=== PATIENT | male | born 1970 | race Caucasian/White ===

== ENCOUNTER 2023-09-26 13:11 | Inpatient (IN) | payer MEDICARE, OTHER, SELFPAY ==
[2023-09-26] VITALS (7 sets, daily range): BP systolic 85–124; BP diastolic 42–81; BMI 17.5
--- NOTE | 2023-09-26 08:49 | ED.GENMED ---
History of Present Illness
General
Chief Complaint: Breathing Problem
Source: patient, ambulance crew and custodial
Exam Limitations: other (History of Down syndrome)
Time Seen by Provider: 09/26/23 08:48
Nursing documentation reviewed up to this point in time: agreed with
History of Present Illness
History of Present Illness:
53-year-old male past medical history of Down syndrome seizure disorder pulmonary fibrosis thyroid disorder presenting to the emergency department today with concerns of shortness of breath starting yesterday. No associated chest pain fevers nausea
vomiting or upper respiratory symptoms. Pulse ox of 80% according to EMS when they arrived at the nursing facility. Apparently he had a low blood pressure as well earlier today in the nursing facility but blood pressures were normal for EMS.
Past History
Past History
ED Past Medical History: GERD, Seizures, Hypothyroidism, Other (Achalasia, C. difficile colitis, GERD, hypothyroidism, Down's syndrome ) and Other (Down's syndrome)
ED Past Surgical History: Brain (Cranial abscess surgery 2005)
Social History
Tobacco: Non-smoker
Alcohol: None
Personal: Single
Living: with family
Employment: Employed (Grocery store)
Family History
Family History: Negative CAD
Review of Systems
Review of Systems
Allergies reviewed?: Yes
All Other Systems: ROS reviewed and negative except as documented in HPI and ROS
Phy Exam
Physical Exam
Physical Exam:
GENERAL: Alert , in no apparent distress
EYE: pupils equal and reactive
NECK: Supple, no significant adenopathy.
ENT: o/p clr, mmm.
CARDIAC: Regular rate and rhythm .
LUNGS: Clear breath sounds bilaterally, no acute respiratory distress, no wheezes/rales/rhonchi
ABDOMEN: Soft, without focal tenderness, no r/g, no cvat
NEUROLOGICAL: Alert and oriented, no focal neuro deficits
SKIN: Warm and dry, skin intact.
MUSCULOSKELETAL: No edema, well perfused.
PSYCH: Normal and appropriate interaction.
Scores
Heart Failure Risk
Heart Failure Risk Score: Not Applicable
Course
Orders/Labs/Results
Orders:
Orders
09/26/23 08:49
Electrocardiogram (*1) Stat
Reason for Study: Other
Other Reason for Exam: pneumonia
EKG- Treatment ONCE
Chest [CR Chest - 2 Views ] Urgent
Comment:
Reason For Exam: sob
09/26/23 09:04
COVID-19 Antigen Urgent
Source: Nasal Swab
Complete Blood Count/With Diff Urgent
Comprehensive Metabolic Panel Urgent
D-Dimer Urgent
NT-proBNP Urgent
Troponin I Urgent
Influenza A+B Rapid Molecular Urgent
PORTER Source: Nasal Swab
Specimen Description:
09/26/23 09:08
Lactate Level [Lactic Acid] Urgent
09/26/23 09:58
CT Chest Pe Study Urgent
Comment:
Reason For Exam: sob. elevated dimer
09/26/23 12:09
Azithromycin 500 mg/250 ml [Zithromax Infusion] 500 mg in 250 ml IV NOW
CefTRIAXone [Rocephin] 2,000 mg IV NOW STA
Abnormal Lab Results
09/26/23
09:04
WBC 14.8 H 10^3/uL
(4.8-10.8)
MCHC 32.2 L g/dL
(33.0-37.0)
RDW 17.2 H %
(11.5-14.5)
MPV 10.5 H fL
(7.4-10.4)
Abs Immat Gran (auto) 0.1 H 10^3/uL
(0-0.05)
Absolute Neuts (auto) 12.2 H 10^3/uL
(1.4-6.5)
Absolute Monos (auto) 1.0 H 10^3/uL
(0.1-0.6)
Neutrophils % 82.4 H %
(42.2-75.2)
Lymphocytes % 8.7 L %
(20.5-51.1)
D-Dimer 1.09 H ug/mlFEU
(0.00-0.50)
Carbon Dioxide 31 H mmol/L
(22-30)
Total Protein 8.7 H g/dl
(6.3-8.2)
09/26/23 09:04
09/26/23 09:04
Vital Signs
Initial and Last Documented VS:
Initial Vital Signs
Temp Pulse Resp
97.7 F 79 18
09/26/23 08:48 09/26/23 08:48 09/26/23 08:48
Last Documented Vital Signs
Temp Pulse Resp BP Pulse Ox
97.7 F 49 13 88/51 96
09/26/23 08:48 09/26/23 12:00 09/26/23 12:00 09/26/23 10:00 09/26/23 12:00
MDM/Problems Addressed
MDM/Problems Addressed:
53-year-old male presenting to the emergency department today with concerns of shortness of breath starting yesterday. Denies chest pain fevers upper respiratory symptoms otherwise. Does have a history of pulmonary fibrosis. Here patient
requiring 2 L nasal cannula which is improving his pulse ox in the mid 90s. Was initially 80 on arrival. Blood pressure in the 80s systolic patient with normal mental status throughout stay. White blood cell count of 14.8. Otherwise troponin
negative EKG unchanged CT scan obtained due to elevated dimer level. This showed pulmonary fibrosis with possibility of superimposed pneumonia. Considering multiple additional concerns and subjective fever over the last few days plan to treat for
possible pneumonia and admit due to the increased oxygen need and low blood pressure for further monitoring overnight.
*Critical Care Note
Total Time (30-74mins, 75-104mins- exclusive of procedures): Not Applicable
ED Attending Note
-
Portions of this chart may have been created with voice recognition software.� Occasional wrong word or��sound alike� substitutions may have occurred due to the inherent limitations of voice recognition software.
Discharge Plan
Departure
Patient Disposition: Admit
Date of Disposition: 09/26/23
Time of Disposition: 12:14
Admit to: Med/Surg
Admit to doctor: Alok
Presentation/result/management discussed w/ accepting MD/DO: Hospitalist
Patient with high blood pressure during this ER visit?: No
Condition: Good
Covid-19: Not Applicable
Discharge Problem:
Pneumonia, Hypoxemia
Prescriptions:
No Action
levothyroxine 75 MCG tablet
75 mcg PO DAILY@629
levetiracetam 250 MG tablet
250 mg PO BID@
sennosides [senna] 8.6 mg Tablet
8.6 mg PO DAILY@2029
acetaminophen [Tylenol] 325 mg Tablet
650 mg PO Q4H MDD 3,000 mg PRN (Reason: mild pain/fever>100.4)
famotidine 10 mg Tablet
10 mg PO Q12H@
magnesium hydroxide [Milk of Magnesia] 400 mg/5 mL Suspension
30 ml PO HSPRN PRN (Reason: constipation)
bisacodyl 10 mg Suppository
10 mg CA DAILY PRN (Reason: q 3 days when no BM and MOM/lactulose ineffective)
albuterol sulfate 90 mcg/actuation Hfa Aerosol Inhaler
1 puff INHALATION R Q4HPRN PRN (Reason: dyspnea)
Referrals:
UNKNOWN,NO INTERVIEW [Family Provider] -
Interventions
Interventions:
*Risk Screen - Suicide Last Done: 09/26/23 08:48
*General Assessment Last Done: 09/26/23 08:48
*Neglect/Abuse Screening Last Done: 09/26/23 08:48
ED- Fall Risk Assessment Last Done: 09/26/23 09:25
*ED COVID-19 Vaccine History Last Done: 09/26/23 08:48
ED- Cardiac Assessment Last Done: 09/26/23 09:23
ED- Pulmonary Assessment Last Done: 09/26/23 09:23
[2023-09-26 09:20] LABS: % Basophils 0.6 % (0-2); % Eosinophils 1.1 % (0-6); % Immature Granulocytes 0.5 % (0-0.5); % Lymphocytes 8.7 % (20.5-51.1); % Monocytes 6.7 % (1.7-9.3); % Neutrophils 82.4 % (42.2-75.2); Absolute Basophils 0.1 10^3/uL (0-0.2); Absolute Eosinophils 0.2 10^3/uL (0-0.7); Absolute Immature Granulocytes 0.1 10^3/uL (0-0.05); Absolute Lymphocytes 1.3 10^3/uL (1.2-3.4); Absolute Neutrophils 12.2 10^3/uL (1.4-6.5); Hematocrit 42.9 % (39.0-52.0); Hemoglobin 13.8 g/dL (13.0-18.0); Mean Corp Hgb Conc. 32.2 g/dL (33.0-37.0); Mean Corpuscular Hgb 28.8 pg (27.0-31.0); Mean Corpuscular Volume 89.6 fL (80.0-94.0); Mean Platelet Volume 10.5 fL (7.4-10.4); Nucleated Red Blood Cells % 0 % (-); Platelet Count 290 10^3/uL (130-400); Red Blood Cell Count 4.79 10^6/uL (4.70-6.10); Red Cell Dist. Width 17.2 % (11.5-14.5); White Blood Cell Count 14.8 10^3/uL (4.8-10.8)
[2023-09-26 09:34] LABS: D-Dimer 1.09 ug/mlFEU (0.00-0.50)
[2023-09-26 09:35] LABS: Lactic Acid 1.5 mmol/L (0.7-2.0)
[2023-09-26 09:40] LABS: ALT (SGPT) 21 U/L (0-50); AST (SGOT) 34 U/L (17-59); Albumin 3.8 g/dl (3.5-5.0); Alkaline Phosphatase 113 U/L (38-126); Blood Urea Nitrogen 11 mg/dl (9-20); Calcium 9.1 mg/dl (8.4-10.2); Carbon Dioxide 31 mmol/L (22-30); Chloride 100 mmol/L (98-107); Glucose 91 mg/dl (70-99); Potassium 4.3 mmol/L (3.5-5.1); Sodium 137 mmol/L (135-145); Total Bilirubin 1.1 mg/dl (0.2-1.3); Total Protein 8.7 g/dl (6.3-8.2); eGFR > 60.00
[2023-09-26 09:49] LABS: Troponin I < 0.012 ng/ml
[2023-09-26 09:56] LABS: COVID-19 Antigen Negative (Negative)
[2023-09-26 10:14] LABS: NT-proBNP 54.9 pg/ml
[2023-09-26] MEDS: ROCEPHIN 2000 MG IV (12:38)
[2023-09-26] MEDS: ZITHROMAX INFUSION 250 IV (12:38)
[2023-09-26] MEDS: NSS 1000 IV ×3 (12:43→23:38)
--- NOTE | 2023-09-26 12:50 | HPS.HSE ---
Addendum entered and electronically signed by Alok Romero MD 09/26/23 18:01:
I independently saw and examined the patient on September 26, 2023.
The PAJanet's note was reviewed and I agree with the note.
Comment:
53 y/o male past medical history of pulmonary fibrosis, seizure disorder, hypothyroidism, GERD, Down syndrome, Dementia, Achalasia and Esophageal Strictures, history of recurrent aspiration pneumonias with resultant pulmonary scarring, C. Diff
colitis, COVID pneumonia, history of prolonged QTc and cranial abscess (status post drainage in 2005) who presented with concerns of shortness of breath starting yesterday, as well as hypoxia (pulse ox was 80% on room air at patient's facility).
Patient resides at [facility]. Today staff noted patient to appear short of breath with cough, and a pulse of 80% on room air prompting him to be sent to the emergency department for evaluation. Patient was also found to be hypotensive below
baseline blood pressure levels, as per patient's family present in the emergency room at the time of admission. Patient is noted to be afebrile upon arrival. Patient is a limited historian.
Vital Signs
Afebrile
Pulse 40s to 70s
SBP as low as in the 70s - later improved
Oxygen saturation in the upper 90s on 2 liters NC
Physical Exam
General: Comfortable and Conversant
HEENT: Anicteric, Oxygen (Nasal Cannula) and Other (Dry Mucous Membranes)
Respiratory: Rales (Diffuse, more prominent in lower regions) and Non Labored Respirations
Cardiac: S1/S2 and Regular Rhythm
GI: Soft and Non Distended
Musculoskeletal: No Cyanosis and No Edema
Skin: Warm and Dry
Neuro: Awake, Alert and Nonfocal/grossly intact
Psych: Calm
Assessment/Plan
Acute Hypoxic Respiratory Insufficiency secondary to Pneumonia
-Continue supplement
-Attempt to wean prior to discharge
Community Acquired Pneumonia
-Continue Rocephin and Doxycycline
-Sputum culture
-Check blood cultures
History of recurrent aspiration pneumonias with resultant pulmonary scarring
Pulmonary Fibrosis
-Will consider pulmonary consult
Prolonged QTc
History of Prolonged QTc
-Avoid QT prolonging medications
Seizure Disorder
-Continue levetiracetam
Hypothyroidism
-Continue levothyroxine
GERD
Achalasia and Esophageal Strictures
-Continue Pepcid
Down syndrome
Dementia
History of C. Diff colitis
History of COVID pneumonia
History of cranial abscess (status post drainage in 2005)
DVT Prophylaxis: Lovenox
Code Status: DNR per [facility], this was confirmed with patient's brother at the bedside at the time of admission
Original Note:
Family Physician
-
Family Physician: NO INTERVIEW UNKNOWN
Chief Complaint
-
Hypoxia
History of Present Illness
Patient is a 53 y/o male past medical history of pulmonary fibrosis, seizure disorder, hypothyroidism and Down syndrome who presents with hypoxia. Patient resides at [facility]. Today staff noted patient to appear short of breath with cough,
and a pulse of 80% on room air prompting him to be sent to the emergency department for evaluation. Patient is noted to be afebrile upon arrival. Patient is a limited historian.
Medical History
Past Medical History
Past Medical History: Reports Other
Additional Past Medical History:
Down Syndrome
Seizure Disorder
Pulmonary Fibrosis
Hypothyroidism
GERD
Past Surgical History: Reports Other
Additional Past Surgical History:
Cranial Abscess Surgery - 2005
Social History
Tobacco: Non-smoker
Living: Half-Way
Family History
Family History: Not pertinent
Allergies / Home Medications
Allergies reflects when Allergies were last updated in [employer].
Home Medications with original date entered in [employer]
Allergy/Medication List:
Allergies
Allergy/AdvReac Type Severity Reaction Status Date / Time
No Known Allergies Allergy Unverified 07/08/20 17:50
Home Medications
levetiracetam 250 mg tablet 250 mg PO BID@ Seizures 07/08/20
levothyroxine 75 mcg tablet 75 mcg PO DAILY@629 Thyroid 07/08/20
acetaminophen 325 mg tablet (Tylenol) 650 mg PO Q4H PRN mild pain/fever>100.4 09/26/23
albuterol sulfate 90 mcg/actuation aerosol inhaler 1 puff inhalation R Q4HPRN PRN dyspnea 09/26/23
bisacodyl 10 mg rectal suppository 10 mg AK DAILY PRN q 3 days when no BM and MOM/lactulose ineffective 09/26/23
famotidine 10 mg tablet 10 mg PO Q12H@829,2029 Gastrointestinal Issue 09/26/23
magnesium hydroxide 400 mg/5 mL oral suspension (Milk of Magnesia) 30 ml PO HSPRN PRN constipation 09/26/23
sennosides 8.6 mg tablet (senna) 8.6 mg PO DAILY@2029 Constipation 09/26/23
Review of Systems
-
Unable to obtain full review of systems at this time due to: Acuity
Physical Exam
Vital Signs
Vital Signs
Temp Pulse Resp BP Pulse Ox
97.7 F 49 13 88/51 96
09/26/23 08:48 09/26/23 12:00 09/26/23 12:00 09/26/23 10:00 09/26/23 12:00
Physical Exam
General: Comfortable and Conversant
HEENT: Anicteric, Oxygen (Nasal Cannula) and Other (Dry Mucous Membranes)
Respiratory: Rales (Diffuse, more prominent in lower regions) and Non Labored Respirations
Cardiac: S1/S2 and Regular Rhythm
GI: Soft and Non Distended
Rectal: Deferred by Provider
Musculoskeletal: No Clubbing, No Cyanosis and No Edema
Skin: Warm and Dry
Neuro: Awake, Alert and Nonfocal/grossly intact
Psych: Calm
Laboratory Results
-
09/26/23 09:04
09/26/23 09:04
Laboratory Results
Lactic Acid 1.5 mmol/L (0.7-2.0) 09/26/23 09:08
Total Bilirubin 1.1 mg/dl (0.2-1.3) 09/26/23 09:04
AST 34 U/L (17-59) 09/26/23 09:04
ALT 21 U/L (0-50) 09/26/23 09:04
Alkaline Phosphatase 113 U/L (38-126) 09/26/23 09:04
Troponin I < 0.012 ng/ml 09/26/23 09:04
Data Reviewed
-
Diagnostic Radiology: Report Reviewed by me
Lab Data: Labs Reviewed by me
Impression/Plan
-
Acute Hypoxic Respiratory Insufficiency secondary to Pneumonia
-Continue supplement
-Attempt to wean prior to discharge
Community Acquired Pneumonia
-Continue Rocephin and Doxycycline
-Check blood cultures
Prolonged QT
-Avoid QT prolonging medications
Seizure Disorder
-Continue levetiracetam
Hypothyroidism
-Continue levothyroxine
GERD
-Continue Pepcid
DVT proph: Lovenox
Code Status: DNR per [facility], confirmed with patient's brother at the bedside at the time of admission
--- NOTE | 2023-09-26 17:00 | PTCARENOTE ---
Received pt from ER, Pt awake,alert and oriented x3. Pt some periods of forgetfulness, easily redirected. Pt has no c/o pain at this time. Pt VSS 94% on 2L. Pt said he has an occasional dry cough. Pt SB with prolonged QT on tele. Pt oriented to
room, call garcia within reach, bed alarm placed for safety, family at bedside, plan of care ongoing.
[2023-09-26] MEDS: LOVENOX 40 MG SC (18:09)
[2023-09-26 18:53] LABS: Troponin I < 0.012 ng/ml
[2023-09-26] MEDS: PEPCID 10 MG PO (20:30)
[2023-09-26] MEDS: SENOKOT PO (20:30)
[2023-09-26] MEDS: VIBRAMYCIN 100 MG PO (20:31)
[2023-09-26] MEDS: KEPPRA 250 MG PO (20:32)
[2023-09-27] VITALS (9 sets, daily range): BP systolic 78–128; BP diastolic 48–95; PULSE 58; O2SAT 97; BMI 17.5
--- NOTE | 2023-09-27 00:48 | PTCARENOTE ---
Patient refused his midnight troponin. Educated patient on the importance of lab draw, patient still continuing to refuse. HAZMAT CDL DRIVER made aware.
--- NOTE | 2023-09-27 01:30 | PTCARENOTE ---
Patient's blood pressure 85/42 with HR ranging from 30s-50s. Patient is asymptomatic, offers no complaints. SUCKER MACHINE OPERATOR made aware, 1L IV bolus ordered at 125 ml/hr. BP recheck 96/51. Plan of care ongoing.
[2023-09-27] MEDS: SYNTHROID 75 MCG PO (06:09)
[2023-09-27 08:34] LABS: Hematocrit 39.4 % (39.0-52.0); Hemoglobin 12.4 g/dL (13.0-18.0); Mean Corp Hgb Conc. 31.5 g/dL (33.0-37.0); Mean Corpuscular Hgb 28.8 pg (27.0-31.0); Mean Corpuscular Volume 91.4 fL (80.0-94.0); Mean Platelet Volume 10.8 fL (7.4-10.4); Platelet Count 254 10^3/uL (130-400); Red Blood Cell Count 4.31 10^6/uL (4.70-6.10); Red Cell Dist. Width 17.2 % (11.5-14.5)
[2023-09-27 08:49] LABS: Troponin I < 0.012 ng/ml
--- NOTE | 2023-09-27 08:59 | CON.ID ---
Consultation
-
Date/Time Consultation Requested: 09/27/2023, 0810
Date/Time Consultation Performed: 09/27/2023, 0900
Requesting Provider: Dr. Alok Romero
Performing Provider: Dr. Ania Corbin
Reason for Consultation: groundglass opacity
Chief Complaint / Past History
Chief Complaint
Cough
History of Present Illness
53 year old male with Down's syndrome, h/o achalasia/espophageal stricture/aspiration, ILD who presented to ED 09/26/23 due to 1 day history of cough. O2 sat 80% according to EMS. Chest CT shows worsening of pulmonary fibrosis. Pt denies fever or
chills. Cough nonproductive. + SOB. No BURNS, rhinorrhea, or sinus congestion. No ill-contacts. No travel hx. He denies aspiration events. He is on soft diet. He is feeling better today.
Past History
Additional Past Medical History:
Down's syndrome
Interstitial lung disease
GERD
Seizure disorder
Hypothyroidism
Achalasia
Esophageal strictures s/p dilation
hx Recurrent aspiration pneumonia.
prolonged QTC
Cranial abscess drainage 2005
Allergy History:
No Known Allergies Allergy (Unverified 07/08/20 17:50)
Medications Reviewed: Yes
Current Antibiotics:
Ceftriaxone (d2)
Doxycycline po (d2)
Social History
Tobacco: Non-Smoker
Alcohol: None
Drug: None
Living: With Family
Family History
Family History: Not Pertinent
Review of Systems
Review of Systems
General: Negative Fever, Chills or Change in Appetite
HEENT: Negative Sinus Problems, Headache or Pharyngitis
Respiratory: Dyspnea and Cough; Negative Sputum Production
Gasteroenterology: Other (no diarrhea); Negative Nausea or Vomiting
Genital / Urological: Negative Dysuria or Flank Pain
Endocrine: Negative Weakness
Neurological: Negative Dizziness
All systems: All other systems were reviewed and were negative
Vital Signs
Temp Pulse Resp BP Pulse Ox
97.7 F 51 16 93/59 91
09/27/23 07:05 09/27/23 07:05 09/27/23 07:05 09/27/23 07:05 09/27/23 07:05
Physical Exam
Physical Exam
Constitutional: No Acute Distress and Comfortable
Head: Other (No frontal or maxillary sinus tenderness)
Eyes: No Conjunctival Hemorrhage and Sclera Anicteric
Cardiovascular: Regular Rate and S1/S2
Pulmonary: Coarse (coarse cackles L)
Gastrointestinal: Soft, Non Tender, Non Distended and Normal Bowel Sounds
Genito-Urinary: Negative Simpson or CVA Tenderness
Extremities: Negative Edema
Neurological: Awake and Alert
Lab / Diagnostic Study Results
09/27/23 07:58
Abs Immat Gran (auto) 0.1 10^3/uL (0-0.05) H 09/26/23 09:04
Absolute Neuts (auto) 12.2 10^3/uL (1.4-6.5) H 09/26/23 09:04
Absolute Lymphs (auto) 1.3 10^3/uL (1.2-3.4) 09/26/23 09:04
Absolute Monos (auto) 1.0 10^3/uL (0.1-0.6) H 09/26/23 09:04
Absolute Basos (auto) 0.1 10^3/uL (0-0.2) 09/26/23 09:04
Immature Gran % 0.5 % (0-0.5) 09/26/23 09:04
Neutrophils % 82.4 % (42.2-75.2) H 09/26/23 09:04
Lymphocytes % 8.7 % (20.5-51.1) L 09/26/23 09:04
Monocytes % 6.7 % (1.7-9.3) 09/26/23 09:04
Eosinophils % 1.1 % (0-6) 09/26/23 09:04
Basophils % 0.6 % (0-2) 09/26/23 09:04
Lactic Acid 1.5 mmol/L (0.7-2.0) 09/26/23 09:08
Microbiology Results
Micro:
09/27/23 00:00 MRSA Screen - Pending
Nose
09/26/23 12:32 Blood Culture - Pending
Blood/Venous
09/26/23 12:32 Blood Culture - Pending
Blood/Venous
09/26/23 09:04 Influenza Types A & B (NEFTALY) - Final
Nasal Swab Negative for Influenza A & B, NAAT
Negative results must be combined with clinical observations
and patient history.
Nucleic Acid Amplification test (NAAT)performed on the
dotHIV platform.
09/26/2023 CXR: There is moderate diffuse coarsening of interstitial markings throughout both lungs more prominent on the right than the left and less extensive than that seen on the 07/08/2020 examination. Given the similar findings on the prior
study, this most likely is interstitial fibrosis, however, superimposed acute pneumonia is difficult to exclude and correlation with the patient's white count is recommended.
09/26/[address]: No PE. There is moderate linear interstitial and groundglass airspace disease throughout both lungs which has worsened in the interval since the previous examination and which is associated with bronchiectasis in the lower
portions of both lungs and emphysematous changes at the left lung base similar to the prior study and most consistent with worsening interstitial fibrosis. Superimposed interstitial pneumonia is difficult to exclude and correlation with the
patient's white count is recommended There is a stable 5 cm subcarinal mass which most likely is hiatal hernia which, if clinically indicated, could be further evaluated with upper GI.
Assessment / Plan
# CAP
- Agree with ceftriaxone and po doxycycline
# Acute hypoxic insufficiency
- wean O2 as tolerated
# Remote h/o of aspiration, on soft diet
- no recent aspiration
# ILD
# Down syndrome
[2023-09-27 09:39] LABS: Blood Urea Nitrogen 8 mg/dl (9-20); Calcium 8.3 mg/dl (8.4-10.2); Carbon Dioxide 28 mmol/L (22-30); Chloride 103 mmol/L (98-107); Estimated Creatinine Clearance 62 ml/min; Glucose 93 mg/dl (70-99); Potassium 4.1 mmol/L (3.5-5.1); Sodium 137 mmol/L (135-145); eGFR > 60.00
[2023-09-27] MEDS: VIBRAMYCIN 100 MG PO ×2 (09:41→20:53)
[2023-09-27] MEDS: PEPCID 10 MG PO ×2 (09:42→20:54)
[2023-09-27] MEDS: KEPPRA 250 MG PO ×2 (09:42→20:54)
[2023-09-27 09:50] LABS: Cortisol, Random 20.9 ug/dl
--- NOTE | 2023-09-27 09:52 | W.PN.HOSP.TC ---
Today's Communication/Plan
-
Continue antibiotics
Appreciate pulm and ID recommendations
Assessment / Plan
Assessment / Plan
Physical Exam
Physical Exam not performed as patient was not present in his room at the time of attempted patient encounter.

Echocardiogram as per disaster recovery specialist's report:
'CONCLUSIONS
Normal left ventricular size, wall thickness and systolic function. No
regional wall motion abnormalities are seen. Left ventricular ejection fraction
is 55-60% by visual estimate. Normal diastolic function.
Normal right ventricular size and function.
Mild aortic regurgitation.'

Assessment/Plan
Acute Hypoxic Respiratory Insufficiency secondary to Pneumonia
-Continue supplement
-Attempt to wean prior to discharge
Community Acquired Pneumonia
-Continue Rocephin and Doxycycline
-Sputum culture
-Follow blood cultures
-Consulted ID, recommendations appreciated
History of recurrent aspiration pneumonias with resultant pulmonary scarring
Pulmonary Fibrosis
-Pulmonary consulted, recommendations appreciated
Prolonged QTc
History of Prolonged QTc
-Avoid QT prolonging medications
Seizure Disorder
-Continue levetiracetam
Hypothyroidism
-Continue levothyroxine
GERD
Achalasia and Esophageal Strictures
-Continue Pepcid
Down syndrome
Dementia
History of C. Diff colitis
History of COVID pneumonia
History of cranial abscess (status post drainage in 2005)
DVT Prophylaxis: Lovenox
Diet: IDDSI Level 5 (minced and moist) and Moderately Thick Liquids
Code Status: DNR per [facility], this was confirmed with patient's brother at the bedside at the time of admission
Anticipated Discharge: > 48 hours
Subjective/Interval History
-
Date of Service: September 27, 2023
Patient was not present in his room at the time of attempted patient encounter. Chart reviewed.
Objective Data
-
Labs:
Laboratory Results
09/27/23
07:58
WBC 5.0
Hgb 12.4 L
Hct 39.4
Plt Count 254
Sodium 137
Potassium 4.1
Chloride 103
Carbon Dioxide 28
BUN 8 L
Creatinine 0.8
Glucose 93
Calcium 8.3 L
Vital Signs:
Vital Signs
Temp Pulse Resp BP Pulse Ox
97.7 F 51 16 93/59 91
09/27/23 07:05 09/27/23 07:05 09/27/23 07:05 09/27/23 07:05 09/27/23 07:05
--- NOTE | 2023-09-27 11:43 | PTOTSP ---
Speech Therapy Swallowing Assessment
Patient with mild symptoms that could indicated laryngeal penetration/aspiration of thin liquids. No gross coughing but mild changes in vocal quality after thin liquid intake.
Given history of silent aspiration during 2011 VSE and more recent recurrent pneumonias, VSE is warranted.
Recommend
1. Downgrade to IDDSI level 6/[place] thick liquids
2. Meds in applesauce cutting or crushing larger pills.
3. Aspiration precautions.
4. VSE for updated objective assessment of pharyngeal phase of swallow/risk for aspiration.
[2023-09-27 11:50] LABS: Free T4 0.92 ng/dl (0.78-2.19)
[2023-09-27] MEDS: ROCEPHIN 1000 MG IV (14:04)
[2023-09-27] MEDS: STERILE WATER FOR INJECTION 10 ML IV (14:05)
--- NOTE | 2023-09-27 14:29 | PTOTSP ---
Video Swallow Examination
Delayed swallow onset with what appeared to be incomplete epiglottic inversion. Together this resulted in Laryngeal penetration of thin liquid tsp 1/2 trials and aspiration on second trial of thin liquid by tsp. Deep laryngeal penetration to vocal
cords on 1/2 trials of thin liquid by cup. Upper laryngeal penetration on 1/2 trials of mildly thick liquid by cup. Tracheal aspiration on second trial of thin and mildly thick liquids by large volume cup sip that required two swallows to clear from
oral cavity. Cough was delayed and ineffective at clearing aspirated/penetrated material.
Collection of contrast within vallecula with solids, and moderately thick liquids.
Collection of contrast noted distally when observing in lateral upright posisition, suggesting contents slow to empty
Recommend:
1. Downgrade to moderately thick liquids. Continue IDDSI 5 Diet (minced/moist).
2. Meds crushed in applesauce.
3. Allow ice chips per [facility] guidelines including oral care via suction toothbrush.
4. Aspiration and reflux precautions.
5. Assist to feed as needed to ensure cyclic ingestion and appropriate amount and rate of intake.
ST will follow and is recommended at discharge.
[2023-09-27 15:06] LABS: Troponin I < 0.012 ng/ml
--- NOTE | 2023-09-27 16:40 | CON.PUL ---
Consultation
Consultation Request
Date/Time Consultation Requested: 09/27/2023
Date/Time Consultation Performed: 09/27/2023
Requesting Provider: NERISSA Cohen
Performing Provider: Dr. Bautista Zelaya
Reason for Consultation: Respiratory insufficiency, pneumonia.
Medical History
-
History of Present Illness:
53-year-old man with history of pulmonary fibrosis, seizure disorder, hypothyroidism, Down syndrome, GERD, achalasia, esophageal strictures, history of recurrent pneumonia with postinflammatory scarring, history of prolonged QT, prior cranial
abscess status post drainage in 2005 came with shortness of breath since yesterday. He was found to be hypoxic with a pulse ox down to 80% at his facility.
Patient resides in [facility]. Patient initially was found to be hypotensive, IV fluid resuscitation was given. Patient is a poor historian.
Records reviewed.
Patient is able to cough on demand but unable to provide more details.
Past Medical History
Past Medical History: Other (See assessment and plan section.)
Social History
Tobacco: Non-smoker
Alcohol: None
Drug: None
Living: [facility]
Family History
Family History: Unable to Obtain (Down syndrome)
Allergies / Home Medications
Allergies
Allergy/AdvReac Type Severity Reaction Status Date / Time
No Known Allergies Allergy Unverified 07/08/20 17:50
Home Medications
Medication Instructions Recorded Confirmed Last Taken Type
levetiracetam 250 mg tablet 250 mg PO BID@0830,2030 Seizures 07/08/20 09/26/23 07/08/20 History
levothyroxine 75 mcg tablet 75 mcg PO DAILY@0630 Thyroid 07/08/20 09/26/23 07/08/20 History
acetaminophen 325 mg tablet 650 mg PO Q4H PRN mild 09/26/23 09/26/23 Unknown History
(Tylenol) pain/fever>100.4
albuterol sulfate 90 mcg/actuation 1 puff inhalation R Q4HPRN PRN 09/26/23 09/26/23 Unknown History
aerosol inhaler dyspnea
bisacodyl 10 mg rectal suppository 10 mg DC DAILY PRN q 3 days when 09/26/23 09/26/23 Unknown History
no BM and MOM/lactulose ineffective
famotidine 10 mg tablet 10 mg PO Q12H@0830,202909/26/23 09/26/23 Unknown History
Gastrointestinal Issue
magnesium hydroxide 400 mg/5 mL 30 ml PO HSPRN PRN constipation 09/26/23 09/26/23 Unknown History
oral suspension (Milk of Magnesia)
sennosides 8.6 mg tablet (senna) 8.6 mg PO DAILY@2029 Constipation 09/26/23 09/26/23 Unknown History
Review of Systems
-
History Source: Patient
All other systems: Negative unless noted
Vitals / Labs / Diagnostic Testing
Vital Signs
Temp Pulse Resp BP Pulse Ox
98 F 56 18 78/48 92
09/27/23 15:05 09/27/23 15:05 09/27/23 15:05 09/27/23 15:05 09/27/23 15:05
Lab Data
09/27/23 07:58
09/27/23 07:58
Microbiology
09/26/23 12:32 Blood/Venous Blood Culture - Preliminary
No Growth in 24 hours- Final report to follow
09/26/23 12:32 Blood/Venous Blood Culture - Preliminary
No Growth in 24 hours- Final report to follow
09/26/23 09:04 Nasal Swab Influenza Types A & B (NEFTALY) - Final
Negative for Influenza A & B, NAAT
Negative results must be combined with clinical observations
and patient history.
Nucleic Acid Amplification test (NAAT)performed on the
[employer] platform.
Diagnostic Testing:
Physical Exam
-
HEENT: Normocephalic
Cardiovascular: S1/S2
Respiratory: Wheeze (n) and Rales
GI: Soft and Non Distended
Neurology: Awake and Alert
Skin: Warm
General: Respiratory Distress (n at rest.)
Assessment
-
Hypoxemic respiratory insufficiency likely bilateral severe pneumonia and top of interstitial lung disease.
CT chest: 09/26/2023-reviewed, no pulmonary embolism. There is moderate linear interstitial and groundglass airspace disease throughout both lungs worsened compared to prior. There is associated bronchiectasis in both lower lobes with
emphysematous changes. There is worsening interstitial fibrosis compared to prior. There is a stable 5 cm subcarinal mass which most likely is hiatal hernia.
Leukocytosis
Conditions present prior admission:
GERD
Achalasia
Chronic aspiration syndrome
Down syndrome
History of C. difficile colitis
History of COVID-pneumonia
History of cranial abscess in 2005
DNR status
Hypothyroidism
Seizure disorder
History of prolonged QT
Pulmonary fibrosis-postinflammatory. Seen by Dr. Brown 09/23/2023-[facility] records reviewed, at that time was discussed comfort diet/no aggressive interventions or evaluation.
-
Plan recommendations:
Agree with therapy with antibiotics, likely this is reflection of recurrent aspiration.
Coughing on demand with congestion. Unable to expectorate.
Crackles on both bases
Minimal shortness of breath with conversation.
Oxygen has been weaned off.
-
[facility] records determined that the pa, if able to produce. Tient is not following recommended diet, family wanted to focus mainly on comfort.
Follow cultures
Continue supplemental oxygen
Nebulizers as needed
In regards to underlying pulmonary fibrosis: Family declined further evaluation. This is likely secondary to chronic aspiration syndrome and prior pneumonia.
-
Aspiration precautions as able
Secretion clearance interventions as able if patient cooperates
-
DVT prophylaxis
DNR status noted.
Based on CAT scan with significant bilateral infiltrates, high risk intubation. Will continue to follow closely.
[2023-09-27] MEDS: LOVENOX 40 MG SC (17:33)
[2023-09-27] MEDS: NSS 1000 IV (17:34)
[2023-09-27] MEDS: SENOKOT 8.59999999999999964 MG PO (20:54)
[2023-09-28] VITALS (7 sets, daily range): BP systolic 87–103; BP diastolic 49–67
[2023-09-28] MEDS: NSS 1000 IV ×2 (03:47→14:26)
[2023-09-28] MEDS: SYNTHROID 75 MCG PO (05:48)
[2023-09-28] MEDS: VIBRAMYCIN 100 MG PO (09:25)
[2023-09-28] MEDS: PEPCID 10 MG PO ×2 (09:26→20:25)
[2023-09-28] MEDS: KEPPRA 250 MG PO ×2 (09:26→20:29)
--- NOTE | 2023-09-28 10:45 | CM ---
CM following re: d/c planning
Chart reviewed
CM spoke with Darnell Hinton via phone; IA questions completed
Pt has been a LTC patient at [facility] since on their dementia unit
NEGATIVE RETOUCHER patient is assisted with adls & mobility and disposition goal is to return to facility once medically stable
Pt PCP-Dr. Ilia Smith & medications are managed by [facility]
CM will continue to follow patient progress and assist with d/c planning needs as indicated
PLAN; d/c to [facility] when medically stable
--- NOTE | 2023-09-28 11:29 | PN.CDI ---
CDI
- -
CDI:
Physician Documentation Request
Admit Date: 09/26/23 13:11
Dear Doctor Heather,
Patient admitted with pneumonia.
Please review the following and provide your response in the progress notes.
Clinical Indicators:
Height: 5'1'
Weight: 92 lb 5 oz
BMI: 17.4
Please provide an associated diagnosis related to the abnormal BMI, such as:
Underweight
Cachectic
Anorexia
BMI is not significant
Other
BMI < or = to 19
Underweight
Weight Loss
Cachectic
Anorexia
Use of terms such as suspected, likely, concern for, or probable (associated with a specific diagnosis that is being evaluated, monitored, or treated as if it exists) are acceptable and can be coded in the inpatient setting, when documented at the
time of discharge.
Thank you,
Syeda ALEJANDRE,RN,CCDS
CDI Specialist
Available via tiger text
Please use your independent medical judgment in providing your response.
--- NOTE | 2023-09-28 11:38 | PN.CDI ---
CDI
- -
CDI:
Physician Documentation Request
Admit Date: 09/26/23 13:11
Dear Doctor Heather,
Patient admitted with pneumonia.
EMS report, ' Pt administered O2 at 6L/M via NC( no change in pt's condition)....Pt's O2 titration upgraded to NRB at 15L/M
(SpO2 level improved and pt stated he could breath better.)
Please provide in your note the diagnosis associate with patient's respiratory status on admission:
Acute hypoxic respiratory failure, POA, now resolved
Hypoxia only
Other
Use of terms such as suspected, likely, concern for, or probable (associated with a specific diagnosis that is being evaluated, monitored, or treated as if it exists) are acceptable and can be coded in the inpatient setting, when documented at the
time of discharge.
Thank you,
Syeda ALEJANDRE,RN,CCDS
CDI Specialist
Available via [place] text
Please use your independent medical judgment in providing your response.
[2023-09-28] MEDS: STERILE WATER FOR INJECTION 10 ML IV ×3 (12:03→22:26)
[2023-09-28] MEDS: ROCEPHIN 1000 MG IV (12:03)
--- NOTE | 2023-09-28 12:06 | W.PN.PUL3 ---
Today's Communication / Plan
-
cont. ABX
Follow cultures.
Secretion clearance
oxygen therapy as necessary.
Assessment
-
Hypoxemic respiratory insufficiency likely bilateral severe pneumonia and top of interstitial lung disease.
CT chest: 09/26/2023-reviewed, no pulmonary embolism. There is moderate linear interstitial and groundglass airspace disease throughout both lungs worsened compared to prior. There is associated bronchiectasis in both lower lobes with
emphysematous changes. There is worsening interstitial fibrosis compared to prior. There is a stable 5 cm subcarinal mass which most likely is hiatal hernia.
Leukocytosis
Conditions present prior admission:
GERD
Achalasia
Chronic aspiration syndrome
Down syndrome
History of C. difficile colitis
History of COVID-pneumonia
History of cranial abscess in 2005
DNR status
Hypothyroidism
Seizure disorder
History of prolonged QT
Pulmonary fibrosis-postinflammatory. Seen by Dr. Brown 09/23/2023-[facility] records reviewed, at that time was discussed comfort diet/no aggressive interventions or evaluation.
-
Plan recommendations:
-
Stable overnight, on low rate supplementa oxygen.
Swallow eval noted, diet modifies. Likely event was due to aspiration.
-
Coughing on demand with congestion. Unable to expectorate.
Crackles on both bases
Denies SOB.
Wean FiO2
Wait for cultures.
acapella if pt able.
-
[facility] records :patient is not following recommended diet, family wanted to focus mainly on comfort.
-
Nebulizers as needed for secretion clearance.
-
In regards to underlying pulmonary fibrosis: Family declined further evaluation. This is likely secondary to chronic aspiration syndrome and prior pneumonia.
-
DVT prophylaxis
DNR status noted.
-
Hopefully if stable and responding to ABX can DC in next 24hr if cultures remain negative
Subjective Data
-
Date of Service:
Date of Service: September 28, 2023
Objective Data
Data Reviewed
Vital Signs / I&O / Oxygen:
Vital Signs
Temp Pulse Resp BP Pulse Ox
98.1 F 53 18 95/50 98
09/28/23 07:00 09/28/23 07:00 09/28/23 07:00 09/28/23 07:00 09/28/23 09:30
Intake and Output
09/27/23 09/28/23 09/29/23
06:59 06:59 06:59
Intake Total 1080 / 1080
Output Total 600 / 600
Balance 480 / 480
SaO2 98
Nasal Cannula flow liters per 2
minute
Labs/Micro/Reports
Lab Data
09/27/23 07:58
09/27/23 07:58
Microbiology
09/27/23 00:00 Nose MRSA Screen - Final
Staph aureus MRSA
09/26/23 12:32 Blood/Venous Blood Culture - Preliminary
No Growth in 24 hours- Final report to follow
09/26/23 12:32 Blood/Venous Blood Culture - Preliminary
No Growth in 24 hours- Final report to follow
09/26/23 09:04 Nasal Swab Influenza Types A & B (NEFTALY) - Final
Negative for Influenza A & B, NAAT
Negative results must be combined with clinical observations
and patient history.
Nucleic Acid Amplification test (NAAT)performed on the
[employer] platform.
--- NOTE | 2023-09-28 13:02 | W.PN.ID1 ---
Date of Service
Date of Service: September 28, 2023
Today's Communication
Since pt is [facility] resident and colonized with MRSA, broaden abx's to po linezolid 600mg bid and IV cefepime.
Assessment / Plan
# Pneumonia
# Acute hypoxic insufficiency
# MRSA colonization
# SNF resident
# h/o of aspiration
# Pulm fibrosis
# Down syndrome
Plan:
- Swallow study aspiration of thin liquids and nectar.
- Since pt is [facility] resident, colonized with MRSA, broaden abx's to po linezolid 600mg bid and IV cefepime.
-Follow O2 status.
#Additional Past Medical History:
Down's syndrome
Interstitial lung disease
GERD
Seizure disorder
Hypothyroidism�
Achalasia
Esophageal strictures s/p dilation
hx Recurrent aspiration pneumonia.
prolonged QTC
Cranial abscess drainage 2005
Chief Complaint
-: Pneumonia
Subjective / Review of Systems
Brother at bedside. Pt reports cough and SOB improving.
Per brother he lives at [facility] ([place])
Vital Signs / Physical Exam
Vital Signs
Vital Signs
Temp Pulse Resp BP Pulse Ox
98.1 F 56 20 87/54 100
09/28/23 11:00 09/28/23 11:00 09/28/23 11:00 09/28/23 11:09/28/23 11:00
Physical Exam
Constitutional: No Acute Distress and Comfortable
Cardiovascular: Regular Rate and S1/S2
Pulmonary: Rales (bibasilar crackles)
Gastrointestinal: Soft, Non Tender and Non Distended
Genito-Urinary: Negative CVA Tenderness
Extremities: Negative Edema
Neurological: AO x 3
Objective Data
Lab Data
Lab Results
09/27/23 07:58
09/27/23 07:58
Estimated Creat Clear 62 ml/min 09/27/23 07:58
Lactic Acid 1.5 mmol/L (0.7-2.0) 09/26/23 09:08
Total Bilirubin 1.1 mg/dl (0.2-1.3) 09/26/23 09:04
AST 34 U/L (17-59) 09/26/23 09:04
ALT 21 U/L (0-50) 09/26/23 09:04
Alkaline Phosphatase 113 U/L (38-126) 09/26/23 09:04
Most recent labs reviewed.
Micro Results:
09/26/23 12:32 Blood Culture - Preliminary
Blood/Venous No Growth in 48 hours- Final report to follow
09/26/23 12:32 Blood Culture - Preliminary
Blood/Venous No Growth in 48 hours- Final report to follow
09/27/23 00:00 MRSA Screen - Final
Nose Staph aureus MRSA
09/26/23 09:04 Influenza Types A & B (NEFTALY) - Final
Nasal Swab Negative for Influenza A & B, NAAT
Negative results must be combined with clinical observations
and patient history.
Nucleic Acid Amplification test (NAAT)performed on the
[employer] platform.
09/26/2023 CXR: There is moderate diffuse coarsening of interstitial markings throughout both lungs more prominent on the right than the left and less extensive than that seen on the 07/08/2020 examination. Given the similar findings on the prior
study, this most likely is interstitial fibrosis, however, superimposed acute pneumonia is difficult to exclude and correlation with the patient's white count is recommended.
09/26/[address]: No PE. There is moderate linear interstitial and groundglass airspace disease throughout both lungs which has worsened in the interval since the previous examination and which is associated with bronchiectasis in the lower
portions of both lungs and emphysematous changes at the left lung base similar to the prior study and most consistent with worsening interstitial fibrosis. Superimposed interstitial pneumonia is difficult to exclude and correlation with the
patient's white count is recommended There is a stable 5 cm subcarinal mass which most likely is hiatal hernia which, if clinically indicated, could be further evaluated with upper GI.
[2023-09-28] MEDS: MAXIPIME 2000 MG IV ×2 (14:22→22:25)
--- NOTE | 2023-09-28 16:07 | W.PN.HOSP.TC ---
Today's Communication/Plan
-
Antibiotics broadened given MRSA
Will consider GI re-evaluation
Assessment / Plan
Assessment / Plan
Physical Exam
General: Comfortable and Conversant
HEENT: Anicteric, Oxygen (Nasal Cannula) and Other (Dry Mucous Membranes)
Respiratory: Rales (Diffuse, more prominent in lower regions) and Non Labored Respirations
Cardiac: S1/S2 and Regular Rhythm
GI: Soft and Non Distended
Musculoskeletal: No Cyanosis and No Edema
Skin: Warm and Dry
Neuro: Awake, Alert and Nonfocal/grossly intact
Psych: Calm

Echocardiogram as per assistant wrestling coach's report:
'CONCLUSIONS
Normal left ventricular size, wall thickness and systolic function. No
regional wall motion abnormalities are seen. Left ventricular ejection fraction
is 55-60% by visual estimate. Normal diastolic function.
Normal right ventricular size and function.
Mild aortic regurgitation.'

Assessment/Plan
Acute hypoxic respiratory failure, POA, now resolved - secondary to Pneumonia
-Continue supplement
-Attempt to wean prior to discharge
Community Acquired Pneumonia
MRSA Colonization
-Status post Rocephin and Doxycycline
-Continue Linezolid and Cefepime as per Infectious Disease
-Sputum culture
-Follow blood cultures
-Consulted ID, recommendations appreciated
History of recurrent aspiration pneumonias with resultant pulmonary scarring
Pulmonary Fibrosis
-Pulmonary consulted, recommendations appreciated
Hypotension
-Echocardiogram was unremarkable except for mild aortic regurgitation.
-Random AM cortisol was 20.9
-TSH was high at 27.60 and Free T4 was 0.92
Prolonged QTc
History of Prolonged QTc
-Avoid QT prolonging medications
Seizure Disorder
-Continue levetiracetam
Hypothyroidism
-Continue levothyroxine
GERD
Achalasia and Esophageal Strictures
-Continue Pepcid
-Considering GI consult for re-evaluation
Underweight
Down syndrome
Dementia
History of C. Diff colitis
History of COVID pneumonia
History of cranial abscess (status post drainage in 2005)
DVT Prophylaxis: Lovenox
Diet: IDDSI Level 5 (minced and moist) and Moderately Thick Liquids
Code Status: DNR per [facility], this was confirmed with patient's brother at the bedside at the time of admission
I discussed case with patient's family who was present in the room today.
Anticipated Discharge: > 48 hours
Subjective/Interval History
-
Date of Service: September 28, 2023
Objective Data
-
Vital Signs:
Vital Signs
Temp Pulse Resp BP Pulse Ox
98.1 F 58 18 97/52 100
09/28/23 15:00 09/28/23 15:00 09/28/23 15:00 09/28/23 15:00 09/28/23 15:00
I&O
09/27/23 09/28/23 09/29/23
06:59 06:59 06:59
Intake Total 1080 / 1080
Output Total 600 / 600
Balance 480 / 480
--- NOTE | 2023-09-28 16:07 | PTCARENOTE ---
Pt is transferring to 2123 due to MRSA +, called report to Jenifer GARCIA, going down on Stretcher with Fluids running. Pt is A+Ox2, in no distress.
--- NOTE | 2023-09-28 16:49 | PTCARENOTE ---
pt received from [facility] after given report. Pt tele monitor tubed to [facility]. 2n tele monitor applied. Vitals taken, nursing assessment complete. patient oriented to floor and room. Pt. comfortable in bed watching tv.
[2023-09-28] MEDS: LOVENOX 40 MG SC (17:51)
[2023-09-28] MEDS: SENOKOT 8.59999999999999964 MG PO (20:25)
[2023-09-28 20:27] LABS: % Eosinophils 1.7 % (0-6); % Immature Granulocytes 0.5 % (0-0.5); % Lymphocytes 17.2 % (20.5-51.1); % Monocytes 3.2 % (1.7-9.3); % Neutrophils 76.4 % (42.2-75.2); Absolute Basophils 0.1 10^3/uL (0-0.2); Absolute Eosinophils 0.1 10^3/uL (0-0.7); Absolute Lymphocytes 1.4 10^3/uL (1.2-3.4); Absolute Monocytes 0.3 10^3/uL (0.1-0.6); Absolute Neutrophils 6.2 10^3/uL (1.4-6.5); Hematocrit 36.1 % (39.0-52.0); Hemoglobin 11.4 g/dL (13.0-18.0); Mean Corp Hgb Conc. 31.6 g/dL (33.0-37.0); Mean Corpuscular Volume 91.9 fL (80.0-94.0); Mean Platelet Volume 9.8 fL (7.4-10.4); Nucleated Red Blood Cells % 0 % (-); Platelet Count 222 10^3/uL (130-400); Red Blood Cell Count 3.93 10^6/uL (4.70-6.10); Red Cell Dist. Width 17.5 % (11.5-14.5); White Blood Cell Count 8.1 10^3/uL (4.8-10.8)
[2023-09-28] MEDS: ZYVOX 600 MG PO (20:29)
[2023-09-28 20:47] LABS: ALT (SGPT) 13 U/L (0-50); AST (SGOT) 28 U/L (17-59); Albumin 2.6 g/dl (3.5-5.0); Alkaline Phosphatase 64 U/L (38-126); Blood Urea Nitrogen 10 mg/dl (9-20); Calcium 8.1 mg/dl (8.4-10.2); Carbon Dioxide 28 mmol/L (22-30); Chloride 107 mmol/L (98-107); Estimated Creatinine Clearance 71 ml/min; Glucose 114 mg/dl (70-99); Potassium 4.7 mmol/L (3.5-5.1); Sodium 141 mmol/L (135-145); Total Bilirubin 0.6 mg/dl (0.2-1.3); Total Protein 6.5 g/dl (6.3-8.2); eGFR > 60.00
[2023-09-29] VITALS (7 sets, daily range): BP systolic 90–111; BP diastolic 47–59
[2023-09-29] MEDS: MAXIPIME 2000 MG IV (05:19)
[2023-09-29] MEDS: SYNTHROID 75 MCG PO (05:19)
[2023-09-29] MEDS: STERILE WATER FOR INJECTION 10 ML IV (05:20)
[2023-09-29 06:14] LABS: % Basophils 1.5 % (0-2); % Eosinophils 3.8 % (0-6); % Immature Granulocytes 0.6 % (0-0.5); % Lymphocytes 26.5 % (20.5-51.1); % Monocytes 6.8 % (1.7-9.3); % Neutrophils 60.8 % (42.2-75.2); Absolute Basophils 0.1 10^3/uL (0-0.2); Absolute Eosinophils 0.3 10^3/uL (0-0.7); Absolute Lymphocytes 1.8 10^3/uL (1.2-3.4); Absolute Monocytes 0.5 10^3/uL (0.1-0.6); Absolute Neutrophils 4.1 10^3/uL (1.4-6.5); Hematocrit 36.1 % (39.0-52.0); Hemoglobin 11.3 g/dL (13.0-18.0); Mean Corp Hgb Conc. 31.3 g/dL (33.0-37.0); Mean Corpuscular Hgb 28.8 pg (27.0-31.0); Mean Corpuscular Volume 91.9 fL (80.0-94.0); Mean Platelet Volume 10.8 fL (7.4-10.4); Nucleated Red Blood Cells % 0 % (-); Platelet Count 214 10^3/uL (130-400); Red Blood Cell Count 3.93 10^6/uL (4.70-6.10); Red Cell Dist. Width 17.1 % (11.5-14.5); White Blood Cell Count 6.8 10^3/uL (4.8-10.8)
[2023-09-29 06:39] LABS: Blood Urea Nitrogen 10 mg/dl (9-20); Carbon Dioxide 29 mmol/L (22-30); Chloride 105 mmol/L (98-107); Estimated Creatinine Clearance 71 ml/min; Glucose 90 mg/dl (70-99); Magnesium 2.1 mg/dl (1.6-2.3); Potassium 4.2 mmol/L (3.5-5.1); Sodium 138 mmol/L (135-145); eGFR > 60.00
[2023-09-29] MEDS: PEPCID 10 MG PO (09:18)
[2023-09-29] MEDS: ZYVOX 600 MG PO ×2 (09:18→21:32)
[2023-09-29] MEDS: KEPPRA 250 MG PO ×2 (09:18→21:32)
--- NOTE | 2023-09-29 09:42 | W.PN.ID1 ---
Date of Service
Date of Service: September 29, 2023
Today's Communication
Anticipate transition to po abx's tomorrow: levofloxacin 750mg po qd and doxycycline 100mg po bid through 10/03/23
Assessment / Plan
# Pneumonia
# Acute hypoxic insufficiency, weaned off oxygen
# MRSA colonization
# [facility] resident
# h/o of aspiration
# Pulm fibrosis
# Down syndrome
Plan:
- Swallow study aspiration of thin liquids and nectar.
- Currently on po linezolid 600mg bid and IV cefepime. ( [facility] resident, colonized with MRSA).
- Anticipate transition to po abx's tomorrow: levofloxacin 750mg po qd and doxycycline 100mg po bid through 10/03/23. Qtc 464.
#Additional Past Medical History:
Down's syndrome
Interstitial lung disease
GERD
Seizure disorder
Hypothyroidism�
Achalasia
Esophageal strictures s/p dilation
hx Recurrent aspiration pneumonia.
prolonged QTC
Cranial abscess drainage 2005
Chief Complaint
-: Pneumonia
Subjective / Review of Systems
Cough resolved. SOB continues to improve.
Vital Signs / Physical Exam
Vital Signs
Vital Signs
Temp Pulse Resp BP Pulse Ox
97.4 F 52 16 98/52 96
09/29/23 07:12 09/29/23 07:12 09/29/23 07:12 09/29/23 07:12 09/29/23 07:12
Physical Exam
Constitutional: No Acute Distress and Comfortable
Eyes: No Conjunctival Hemorrhage and Sclera Anicteric
Cardiovascular: Regular Rate and S1/S2
Pulmonary: Coarse (bases)
Neurological: AO x 3
Objective Data
Lab Data
Lab Results
09/29/23 05:15
09/29/23 05:15
Estimated Creat Clear 71 ml/min 09/29/23 05:15
Lactic Acid 1.5 mmol/L (0.7-2.0) 09/26/23 09:08
Total Bilirubin 0.6 mg/dl (0.2-1.3) 09/28/23 20:22
AST 28 U/L (17-59) 09/28/23 20:22
ALT 13 U/L (0-50) 09/28/23 20:22
Alkaline Phosphatase 64 U/L (38-126) 09/28/23 20:22
Most recent labs reviewed.
Micro Results:
09/26/23 12:32 Blood Culture - Preliminary
Blood/Venous No Growth in 48 hours- Final report to follow
09/26/23 12:32 Blood Culture - Preliminary
Blood/Venous No Growth in 48 hours- Final report to follow
09/27/23 00:00 MRSA Screen - Final
Nose Staph aureus MRSA
09/26/23 09:04 Influenza Types A & B (NEFTALY) - Final
Nasal Swab Negative for Influenza A & B, NAAT
Negative results must be combined with clinical observations
and patient history.
Nucleic Acid Amplification test (NAAT)performed on the
[employer] platform.
09/26/2023 CXR: There is moderate diffuse coarsening of interstitial markings throughout both lungs more prominent on the right than the left and less extensive than that seen on the 07/08/2020 examination. Given the similar findings on the prior
study, this most likely is interstitial fibrosis, however, superimposed acute pneumonia is difficult to exclude and correlation with the patient's white count is recommended.
09/26/[address]: No PE. There is moderate linear interstitial and groundglass airspace disease throughout both lungs which has worsened in the interval since the previous examination and which is associated with bronchiectasis in the lower
portions of both lungs and emphysematous changes at the left lung base similar to the prior study and most consistent with worsening interstitial fibrosis. Superimposed interstitial pneumonia is difficult to exclude and correlation with the
patient's white count is recommended There is a stable 5 cm subcarinal mass which most likely is hiatal hernia which, if clinically indicated, could be further evaluated with upper GI.
--- NOTE | 2023-09-29 10:31 | CON.GI ---
Addendum entered and electronically signed by Delma Arriaga MD 09/29/23 11:20:
I saw and examined the patient.
The TRIAL MANAGEMENT ASSOCIATE's note was reviewed and I agree with the note.
Comment: This is a 53-year-old male with past medical history of Down syndrome, dementia, reflux esophagitis, esophageal stricture status post dil[place] [address] Hager, history of achalasia was also evaluated by Dr. Pj Owen in the past
in 2004 and was recommended pneumatic dilatation but it is unclear if the patient underwent pneumatic dilatation at that time. He has had aspiration pneumonia and has been evaluated by speech and we were consulted for possible endoscopy with repeat
dilatation or PEG placement. Patient is currently tolerating dysphagia diet. He currently denies any abdominal pain and no pain with swallowing.
Assessment and plan reflux esophagitis with history of esophageal stricture and achalasia status post dilatation but unclear if he had pneumatic dilatation in the past. He was on Pepcid prior to admission he should be on a PPI indefinitely. Will
start him on pantoprazole twice daily and take Pepcid at bedtime and continue diet as recommended by speech he is on dysphagia diet. See discussion below by Aurelia Christine our nurse practitioner with patient's brother, he does not want him to
undergo any invasive procedures including endoscopy or a PEG he is aware of the risk of aspiration but would like patient to continue the dysphagia diet as tolerated.
Will sign off and will be available as needed
Original Note:
Consultation
-
Date/Time Consultation Requested: 09/29/23 0817
Date/Time Consultation Performed: 09/29/23 1030
Requesting Provider: Dr. Romero
Performing Provider: Dr. Arriaga/NERISSA Baltazar
Reason for Consultation: achalasia
Medical History
Chief Complaint / HPI
Chief Complaint: SOB, hypoxia
History of Present Illness:
53-year-old male with past medical history of Down syndrome, seizure disorder, GERD, dementia, pulmonary fibrosis, achalasia and esophageal stricture, recurrent aspiration pneumonia, C. difficile colitis, COVID-pneumonia, prolonged QTc, cranial
abscess status postdrainage in 2005 currently living at [facility] since 2021 who presents to the emergency room on 09/26/2023 with shortness of breath and pulse ox of 80% on room air. Patient was found to have bilateral pneumonia. We were
asked to evaluate for history of achalasia and esophageal strictures in the past. I discussed with the patient's brother Ernesto Hinton as patient has a history of dementia as well as Down syndrome to see if he has followed up with any other
fiberglass model maker since he had last seen Dr. Hager. The patient has not been seen by gastroenterology since 2011. The patient has a longstanding history of aspiration starting as an . At that time he was fitted with a tube placed into his
esophagus into his stomach. He also had a diagnosis of stricture or esophageal atresia. He had an esophageal stenosis. The patient was evaluated by Dr. Pj vickers at [facility] in the past. Back in 2004 he felt that he
would benefit more from pneumatic dilatation rather than myotomy. In 2007 the patient had LA grade D esophagitis, chronic gastritis, gastroparesis and a benign-appearing esophageal stricture. There is also signs of achalasia. This was dilated.
The patient was to maintain Protonix 40 mg by mouth twice daily indefinitely. At the present time the patient is only on famotidine 10 mg twice daily at [facility]. The patient is a very pleasant, he just finished his breakfast not long ago
and ate the entire try. He is just getting ready to eat his yogurt. He states that the food goes down slow but he has no pain and he does not recall ever vomiting. He denies any pain with swallowing. He denies any abdominal pain at the present
time. Upon speaking to his brother he does not wish for him to have any invasive testing including endoscopy. He is agreeable to an esophagram, radiologist does not feel comfortable doing swallowing test because of aspiration risk. The patient had
a video swallow exam that showed penetration with thin liquids and mildly thick liquids. They recommended downgrading to moderately thick liquids. Continue IDD SY5 diet (minced/moist). Meds crushed in applesauce. Allow ice chips including oral
care via suction toothbrush. Aspiration reflux precautions. Assist to feed as needed to ensure cyclic ingestion and appropriate amount of rate of intake. Discussed with patient's brother who understands his brothers risk of aspiration with as he
states 'anything he puts into his mouth'. He wants to allow him to eat. He states that his brother is a DO NOT RESUSCITATE. That he is 53 years old with dementia and Down syndrome. He states that his goal for his brother is to 'keep him happy'.
Past Medical History
Past Medical History: Other (Down syndrome, seizure disorder, GERD, dementia, pulmonary fibrosis, achalasia and esophageal stricture, recurrent aspiration pneumonia, C. difficile colitis, COVID-pneumonia, prolonged QTc, cranial abscess status
postdrainage in 2005)
Past Surgical History: Other (Cranial abscess drainage)
Social History
Tobacco: Non-Smoker
Alcohol: None
Drug: None
Personal: Single
Living: Senior Living
Family History
Family History: Unable to Obtain
Allergies / Home Medications
Allergy/AdvReac Type Severity Reaction Status Date / Time
No Known Allergies Allergy Unverified 07/08/20 17:50
Medication Instructions Recorded
levetiracetam 250 mg tablet 250 mg PO BID@829,2029 Seizures 07/08/20
levothyroxine 75 mcg tablet 75 mcg PO DAILY@0630 Thyroid 07/08/20
acetaminophen 325 mg tablet 650 mg PO Q4H PRN mild 09/26/23
(Tylenol) pain/fever>100.4
albuterol sulfate 90 mcg/actuation 1 puff inhalation R Q4HPRN PRN 09/26/23
aerosol inhaler dyspnea
bisacodyl 10 mg rectal suppository 10 mg WV DAILY PRN q 3 days when 09/26/23
no BM and MOM/lactulose ineffective
famotidine 10 mg tablet 10 mg PO Q12H@829,202909/26/23
Gastrointestinal Issue
magnesium hydroxide 400 mg/5 mL 30 ml PO HSPRN PRN constipation 09/26/23
oral suspension (Milk of Magnesia)
sennosides 8.6 mg tablet (senna) 8.6 mg PO DAILY@2029 Constipation 09/26/23
Review of Systems
-
Unable to obtain full review of systems at this time due to: Dementia
All other systems: A 12 pt ROS was Negative except as stated above in HPI
Vital Signs
Temp Pulse Resp BP Pulse Ox
97.4 F 52 16 98/52 96
09/29/23 07:12 09/29/23 07:12 09/29/23 07:12 09/29/23 07:12 09/29/23 07:12
Physical Exam
Exam
General: No Apparent Distress
HEENT: Anicteric
Respiratory: Rales (B/L bases)
Cardiac: Regular Rhythm
GI: Soft, Non Tender, Non Distended and Normal Bowel Sounds
Musculoskeletal: No Edema
Skin: Warm and Dry
Neuro: Awake and Alert
Psych: Calm (Very pleasant)
Results
WBC 6.8 10^3/uL (4.8-10.8) 09/29/23 05:15
Hgb 11.3 g/dL (13.0-18.0) L 09/29/23 05:15
Hct 36.1 % (39.0-52.0) L 09/29/23 05:15
MCV 91.9 fL (80.0-94.0) 09/29/23 05:15
Plt Count 214 10^3/uL (130-400) 09/29/23 05:15
Absolute Neuts (auto) 4.1 10^3/uL (1.4-6.5) 09/29/23 05:15
Sodium 138 mmol/L (135-145) 09/29/23 05:15
Potassium 4.2 mmol/L (3.5-5.1) 09/29/23 05:15
Chloride 105 mmol/L (98-107) 09/29/23 05:15
Carbon Dioxide 29 mmol/L (22-30) 09/29/23 05:15
BUN 10 mg/dl (9-20) 09/29/23 05:15
Creatinine 0.7 mg/dL (0.7-1.3) 09/29/23 05:15
Calcium 8.0 mg/dl (8.4-10.2) L 09/29/23 05:15
Total Bilirubin 0.6 mg/dl (0.2-1.3) 09/28/23 20:22
AST 28 U/L (17-59) 09/28/23 20:22
ALT 13 U/L (0-50) 09/28/23 20:22
Alkaline Phosphatase 64 U/L (38-126) 09/28/23 20:22
Diagnostic Image Results:
Prior GI Procedures:
EGD: 01/25/2008 (Hager) � � - Esophageal mucosal abnormality characterized by
�� � � � � � � � � � flattening.
�� � � � � � � � � � - Z-line regular, 38 cm from the incisors.
�� � � � � � � � � � - Bile gastritis without hemorrhage.
�� � � � � � � � � � - Normal 3rd part of the duodenum.
Recommendation:� � � - Discharge patient to home (ambulatory).
�� � � � � � � � � � - Use Protonix (pantoprazole) at 40 mg by mouth daily
�� � � � � � � � � � indefinitely.
Colonoscopy: cannot find any documentation
Assessment / Plan
-
53-year-old male with past medical history of Down syndrome, seizure disorder, GERD, dementia, pulmonary fibrosis, achalasia and esophageal stricture, recurrent aspiration pneumonia, C. difficile colitis, COVID-pneumonia, prolonged QTc, cranial
abscess status postdrainage in 2005 currently living at [facility] since 2021 who presents to the emergency room on 09/26/2023 with shortness of breath and pulse ox of 80% on room air. Patient was found to have bilateral pneumonia. We were
asked to evaluate for history of achalasia and esophageal strictures in the past. I discussed with the patient's brother Ernesto Hinton as patient has a history of dementia as well as Down syndrome to see if he has followed up with any other
fiberglass model maker since he had last seen Dr. Hager. The patient has not been seen by gastroenterology since 2011. Patient is on a modified diet and [place]. He is currently being treated here for pneumonia. Patient was on famotidine 10
mg twice daily. With his history of LA grade D esophagitis he should have been on PPI twice daily indefinitely. Given the fact that he has aspiration with thin liquids esophagram is not recommended per radiology. Patient has had video swallow
exam and diet has been recommended by speech-language pathology and patient is tolerating. Discussed with patient's brother who understands his brothers risk of aspiration with as he states 'anything he puts into his mouth'. He wants to allow him
to eat. The brother does not want any invasive testing or procedures including endoscopy/PEG tube. He states that his brother is a DO NOT RESUSCITATE. That he is 53 years old with dementia and Down syndrome. He states that his goal for his
brother is to 'keep him happy'.
Impression:
Pneumonia
History of aspiration, speech-language pathology recommendations noted.
Down syndrome
Dementia
Achalasia
History of GERD/esophagitis/esophageal stricture
Plan:
-Patient with aspiration of thin liquids mildly thickened liquids. Patient at risk for aspiration with barium esophagram. Discussed with radiology.
-Discussed with patient's brother Ernesto Hinton who understands his brothers risk of aspiration as he states 'anything he puts into his mouth'. He wants to allow him to eat. The brother does not want any invasive testing or procedures including
endoscopy/PEG tube. He states that his brother is a DO NOT RESUSCITATE. That he is '55 years old with dementia and Down syndrome and that his goal is for his brother to keep him happy.'
-At this juncture we would continue PPI twice daily and H2 donny at bedtime.
-Would recommend diet as per speech language pathology recommendations and would honor the wishes of the patient and brother.
-
-
Thank you for consultation and allowing me to participate in the patient's care. Please call the water quality control engineer GI physician during the after hours with any questions or concerns.
--- NOTE | 2023-09-29 11:26 | W.PN.UPDATE ---
Update Note
Progress Note Update
His brother Ernesto Swanson and his Barbi(patients sister in law) are both his POA's, I also spoke to the brother over the telephone and he said that Yong enjoys eating and he would hate to take that away from him and they do not want him to
undergo an EGD with PEG
--- NOTE | 2023-09-29 11:46 | W.PN.HOSP.TC ---
Today's Communication/Plan
-
Stable
Appreciate GI evaluation and ID evaluation
Possible discharge tomorrow
Assessment / Plan
Assessment / Plan
Physical Exam
General: Comfortable and Conversant
HEENT: Normocephalic
Respiratory: Rales (Diffuse, more prominent in lower regions) and Non Labored Respirations. ON ROOM AIR OXYGEN.
Cardiac: S1/S2 and Regular Rhythm
GI: Soft and Non Distended. Positive bowel sounds.
Musculoskeletal: No Cyanosis and No Edema
Skin: Warm and Dry
Neuro: Awake, Alert and Nonfocal/grossly intact
Psych: Calm

Echocardiogram as per lens cleaner's report:
'CONCLUSIONS
Normal left ventricular size, wall thickness and systolic function. No
regional wall motion abnormalities are seen. Left ventricular ejection fraction
is 55-60% by visual estimate. Normal diastolic function.
Normal right ventricular size and function.
Mild aortic regurgitation.'

Assessment/Plan
Acute hypoxic respiratory failure, POA, now resolved - secondary to Pneumonia
-Continue supplement
-Attempt to wean prior to discharge
Community Acquired Pneumonia
MRSA Colonization
SNF Resident
-Status post Rocephin and Doxycycline
-Continue Linezolid and Cefepime as per Infectious Disease
-Anticipate transition (on 09/30/23) to P.O. antibiotics: Levofloxacin 750mg po qd and Doxycycline 100mg po bid through 10/03/23. Qtc 464.
-Sputum culture
-Follow blood cultures
-Consulted ID, recommendations appreciated
History of recurrent aspiration pneumonias with resultant pulmonary scarring
Pulmonary Fibrosis
-Pulmonary consulted, recommendations appreciated
Hypotension - was worsened suspected by current Pneumonia
-Echocardiogram was unremarkable except for mild aortic regurgitation.
-Random AM cortisol was 20.9
-TSH was high at 27.60 and Free T4 was 0.92
-Recheck thyroid studies and follow-up with endocrinology outpatient
Prolonged QTc
History of Prolonged QTc
-Minimize QTc prolonging-medications as much as possible
-Okay to start Levaquin above as long as QTc acceptable
Seizure Disorder
-Continue levetiracetam
Hypothyroidism
-Continue levothyroxine
GERD
Achalasia and Esophageal Strictures status post dil[place] [address] Hager (but unclear if patient had pneumatic dilatation in the past)
History of Reflux Esophagitis
-Continue Pepcid
-Consulted GI, recommendations appreciated
-Start Pantoprazole 40 mg PO BID
-Pepcid at bedtime 20 mg
-Patient's brother does not want patient to undergo any invasive procedures including endoscopy or a PEG and he is aware of the risk of aspiration but would like patient to continue the dysphagia diet as tolerated
-Appreciate GI evaluation and recommendations
Underweight
Down syndrome
Dementia
History of C. Diff colitis
History of COVID pneumonia
History of cranial abscess (status post drainage in 2005)
DVT Prophylaxis: Lovenox
Diet: IDDSI Level 5 (minced and moist) and Moderately Thick Liquids; Meds crushed in applesauce; Allow ice chips per ARHP guidelines including oral care via suction toothbrush; Aspiration and reflux precautions; Assist to feed as needed to ensure
cyclic ingestion and appropriate amount and rate of intake.
Code Status: DNR per POLST, this was confirmed with patient's brother at the bedside at the time of admission
Anticipated Discharge: Within 24 hours
Subjective/Interval History
-
Date of Service: September 29, 2023
Patient was seen and examined. He reported no new fever, new chest pain or new shortness of breath.
Objective Data
-
Labs:
Laboratory Results
09/29/23
05:15
WBC 6.8
Hgb 11.3 L
Hct 36.1 L
Plt Count 214
Sodium 138
Potassium 4.2
Chloride 105
Carbon Dioxide 29
BUN 10
Creatinine 0.7
Glucose 90
Calcium 8.0 L
Vital Signs:
Vital Signs
Temp Pulse Resp BP Pulse Ox
97.4 F 54 18 94/52 96
09/29/23 11:21 09/29/23 11:21 09/29/23 11:21 09/29/23 11:21 09/29/23 11:21
I&O
09/28/23 09/29/23 09/30/23
06:59 06:59 06:59
Intake Total 1080 / 1080 980 / 980
Output Total 600 / 600
Balance 480 / 480 980 / 980
--- NOTE | 2023-09-29 12:44 | W.PN.PUL3 ---
Today's Communication / Plan
-
Continue antibiotics
Aspiration precautions as able
Hopefully discharge soon
Assessment
-
Hypoxemic respiratory insufficiency likely bilateral severe pneumonia and top of interstitial lung disease.
CT chest: 09/26/2023-reviewed, no pulmonary embolism. There is moderate linear interstitial and groundglass airspace disease throughout both lungs worsened compared to prior. There is associated bronchiectasis in both lower lobes with
emphysematous changes. There is worsening interstitial fibrosis compared to prior. There is a stable 5 cm subcarinal mass which most likely is hiatal hernia.
Leukocytosis
Conditions present prior admission:
GERD
Achalasia
Chronic aspiration syndrome
Down syndrome
History of C. difficile colitis
History of COVID-pneumonia
History of cranial abscess in 2005
DNR status
Hypothyroidism
Seizure disorder
History of prolonged QT
Pulmonary fibrosis-postinflammatory. Seen by Dr. Brown 09/23/2023-[facility] records reviewed, at that time was discussed comfort diet/no aggressive interventions or evaluation.
-
Plan recommendations:
-
Remains on room air.
Does not appear toxic
Afebrile
Swallow eval noted, diet modifies. Likely event was due to aspiration.
-
Coughing on demand with congestion. Unable to expectorate.
Crackles on both bases
Currently on room air
Cultures negative so far
MRSA screening positive
acapella if pt able.
-
[facility] records :patient is not following recommended diet, family wanted to focus mainly on comfort.
Family declined PEG tube. Chronic aspiration will continue to happen
Palliative care may be an option in the outpatient setting.
-
Nebulizers as needed for secretion clearance.
-
In regards to underlying pulmonary fibrosis: Family declined further evaluation. This is likely secondary to chronic aspiration syndrome and prior pneumonia.
-
DVT prophylaxis
DNR status noted.
-
No additional recommendation from the pulmonary perspective.
Sign off.
Outpatient pulmonary follow-up after discharge
Subjective Data
-
Date of Service:
Date of Service: September 29, 2023
Chief Complaint: Pulmonary Follow Up (Pneumonia/interstitial lung disease-respiratory sufficiency)
Subjective:
No new complaints
Intermittent coughing without phlegm production
Denies any chest pain
Denies hemoptysis
Review of Systems
Cardiopulmonary: Dyspnea (n), Dyspnea on Exertion (n), Cough and Sputum Production (n)
Objective Data
Data Reviewed
Vital Signs / I&O / Oxygen:
Vital Signs
Temp Pulse Resp BP Pulse Ox
97.4 F 54 18 94/52 96
09/29/23 11:21 09/29/23 11:21 09/29/23 11:21 09/29/23 11:21 09/29/23 11:21
Intake and Output
09/28/23 09/29/23 09/30/23
06:59 06:59 06:59
Intake Total 1080 / 1080 980 / 980
Output Total 600 / 600
Balance 480 / 480 980 / 980
SaO2 96
Nasal Cannula flow liters per 2
minute
Physical Exam
General: Respiratory Distress (n) and Comfortable
HEENT: Normocephalic
Cardiovascular: S1-S2 and Regular Rhythm
Respiratory: Crackles
GI: Soft and Non Distended
Neurology: Awake and Alert
Labs/Micro/Reports
Lab Data
09/29/23 05:15
09/29/23 05:15
Microbiology
09/26/23 12:32 Blood/Venous Blood Culture - Preliminary
No Growth in 48 hours- Final report to follow
09/26/23 12:32 Blood/Venous Blood Culture - Preliminary
No Growth in 48 hours- Final report to follow
09/27/23 00:00 Nose MRSA Screen - Final
Staph aureus MRSA
09/26/23 09:04 Nasal Swab Influenza Types A & B (NEFTALY) - Final
Negative for Influenza A & B, NAAT
Negative results must be combined with clinical observations
and patient history.
Nucleic Acid Amplification test (NAAT)performed on the
[employer] platform.
--- NOTE | 2023-09-29 13:55 | VATNOTE ---
Attempted to restart IV, patient adamantly refusing restart.
--- NOTE | 2023-09-29 13:58 | PN.CDI ---
CDI
- -
CDI:
Physician Documentation Request
Admit Date: 09/26/23 13:11
Dear Doctor Heather,
Patient admitted with pneumonia.
PN, 'Community Acquired Pneumonia....History of recurrent aspiration pneumonias.'
09/27 SP note, 'Video Swallow Examination-Tracheal aspiration on second trial of thin .... Cough was delayed and ineffective at clearing aspirated/penetrated material. '
After careful study, please provide in your note the likely etiology/ etiologies of documented pneumonia:
Multifactorial due to community acquired pneumonia and aspiration pneumonia
Community acquired pneumonia only
Aspiration pneumonia only
Other
Use of terms such as suspected, likely, concern for, or probable (associated with a specific diagnosis that is being evaluated, monitored, or treated as if it exists) are acceptable and can be coded in the inpatient setting, when documented at the
time of discharge.
Thank you,
Syeda ALEJANDRE,RN,CCDS
CDI Specialist
Available via Christine text
Please use your independent medical judgment in providing your response.
[2023-09-29] MEDS: STERILE WATER FOR INJECTION IV (14:16)
[2023-09-29] MEDS: MAXIPIME IV (14:16)
[2023-09-29] MEDS: LEVAQUIN 750 MG PO (14:22)
[2023-09-29] MEDS: PROTONIX 40 MG PO ×2 (14:23→21:30)
--- NOTE | 2023-09-29 17:26 | CM ---
Discharge plan of care: Return to [facility] dementia unit.
[2023-09-29] MEDS: LOVENOX 40 MG SC (18:28)
[2023-09-29] MEDS: PEPCID 20 MG PO (21:30)
[2023-09-29] MEDS: SENOKOT 8.59999999999999964 MG PO (21:30)
--- NOTE | 2023-09-30 00:25 | PTCARENOTE ---
Addendum entered by Bulmaro Greene RN 09/30/23 03:46:
Patient's 0300 BP 87/49, HR 47. Patient offering no complaints. WELDING MACHINE OPERATOR ARC notified.
Original Note:
Patient's 1900 BP 94/51 and 2300 BP 90/50. Patient's HR 40s-50s on telemonitor - brief periods of everton down to upper 30s while sleeping. Patient offering no complaints. WELDING MACHINE OPERATOR ARC notified.
[2023-09-30 03:29] VITALS: BP 87/49
[2023-09-30 04:56] LABS: % Basophils 1.7 % (0-2); % Eosinophils 4.7 % (0-6); % Immature Granulocytes 0.6 % (0-0.5); % Monocytes 8.6 % (1.7-9.3); % Neutrophils 61.4 % (42.2-75.2); Absolute Basophils 0.1 10^3/uL (0-0.2); Absolute Eosinophils 0.3 10^3/uL (0-0.7); Absolute Lymphocytes 1.2 10^3/uL (1.2-3.4); Absolute Monocytes 0.5 10^3/uL (0.1-0.6); Absolute Neutrophils 3.3 10^3/uL (1.4-6.5); Hematocrit 34.4 % (39.0-52.0); Mean Corpuscular Hgb 28.9 pg (27.0-31.0); Mean Corpuscular Volume 90.5 fL (80.0-94.0); Mean Platelet Volume 10.2 fL (7.4-10.4); Nucleated Red Blood Cells % 0 % (-); Platelet Count 201 10^3/uL (130-400); Red Cell Dist. Width 16.9 % (11.5-14.5); White Blood Cell Count 5.4 10^3/uL (4.8-10.8)
[2023-09-30 05:19] LABS: Blood Urea Nitrogen 7 mg/dl (9-20); Calcium 8.3 mg/dl (8.4-10.2); Carbon Dioxide 31 mmol/L (22-30); Chloride 104 mmol/L (98-107); Estimated Creatinine Clearance 62 ml/min; Glucose 97 mg/dl (70-99); Magnesium 2.1 mg/dl (1.6-2.3); Potassium 3.9 mmol/L (3.5-5.1); Sodium 136 mmol/L (135-145); eGFR > 60.00
[2023-09-30] MEDS: SYNTHROID 75 MCG PO (05:51)
[2023-09-30 07:08] VITALS: BP 81/45
[2023-09-30] MEDS: KEPPRA 250 MG PO ×2 (08:42→19:38)
[2023-09-30] MEDS: PROTONIX 40 MG PO ×2 (08:42→19:38)
[2023-09-30] MEDS: LEVAQUIN 750 MG PO (08:43)
[2023-09-30] MEDS: ZYVOX 600 MG PO (08:43)
[2023-09-30 11:00] VITALS: BP 92/44
--- NOTE | 2023-09-30 13:52 | W.PN.ID1 ---
Date of Service
Date of Service: September 30, 2023
Today's Communication
Transition abx's to levofloxacin 750mg po qd and doxycycline 100mg po bid through 10/03/23.
OK for DC from [facility].
Assessment / Plan
# Pneumonia improving
# Acute hypoxic insufficiency, weaned off oxygen
# MRSA colonization
# SNF resident
# h/o of aspiration
# Pulm fibrosis
# Down syndrome
Plan:
- Swallow study aspiration of thin liquids and nectar.
- Transition abx's to levofloxacin 750mg po qd and doxycycline 100mg po bid through 10/03/23. Qtc 464.
#Additional Past Medical History:
Down's syndrome
Interstitial lung disease
GERD
Seizure disorder
Hypothyroidism�
Achalasia
Esophageal strictures s/p dilation
hx Recurrent aspiration pneumonia.
prolonged QTC
Cranial abscess drainage 2005
Chief Complaint
-: Pneumonia
Subjective / Review of Systems
Continues to improve.
Vital Signs / Physical Exam
Vital Signs
Vital Signs
Temp Pulse Resp BP Pulse Ox
98.0 F 54 16 92/44 96
09/30/23 11:00 09/30/23 11:00 09/30/23 11:00 09/30/23 11:00 09/30/23 11:00
Physical Exam
Constitutional: No Acute Distress and Comfortable
Pulmonary: Coarse (bases)
Gastrointestinal: Soft, Non Tender and Non Distended
Objective Data
Lab Data
Lab Results
09/30/23 04:27
09/30/23 04:27
Estimated Creat Clear 62 ml/min 09/30/23 04:27
Lactic Acid 1.5 mmol/L (0.7-2.0) 09/26/23 09:08
Total Bilirubin 0.6 mg/dl (0.2-1.3) 09/28/23 20:22
AST 28 U/L (17-59) 09/28/23 20:22
ALT 13 U/L (0-50) 09/28/23 20:22
Alkaline Phosphatase 64 U/L (38-126) 09/28/23 20:22
Most recent labs reviewed.
Micro Results:
09/26/23 12:32 Blood Culture - Preliminary
Blood/Venous No Growth in 4 days- Final report to follow
09/26/23 12:32 Blood Culture - Preliminary
Blood/Venous No Growth in 4 days- Final report to follow
09/27/23 00:00 MRSA Screen - Final
Nose Staph aureus MRSA
09/26/23 09:04 Influenza Types A & B (NEFTALY) - Final
Nasal Swab Negative for Influenza A & B, NAAT
Negative results must be combined with clinical observations
and patient history.
Nucleic Acid Amplification test (NAAT)performed on the
[employer] platform.
09/26/2023 CXR: There is moderate diffuse coarsening of interstitial markings throughout both lungs more prominent on the right than the left and less extensive than that seen on the 07/08/2020 examination. Given the similar findings on the prior
study, this most likely is interstitial fibrosis, however, superimposed acute pneumonia is difficult to exclude and correlation with the patient's white count is recommended.
09/26/[address]: No PE. There is moderate linear interstitial and groundglass airspace disease throughout both lungs which has worsened in the interval since the previous examination and which is associated with bronchiectasis in the lower
portions of both lungs and emphysematous changes at the left lung base similar to the prior study and most consistent with worsening interstitial fibrosis. Superimposed interstitial pneumonia is difficult to exclude and correlation with the
patient's white count is recommended There is a stable 5 cm subcarinal mass which most likely is hiatal hernia which, if clinically indicated, could be further evaluated with upper GI.
--- NOTE | 2023-09-30 14:21 | W.PN.HOSP.TC ---
Addendum entered and electronically signed by Alok Romero MD 09/30/23 14:34:
Pneumonia Multifactorial due to community and SNF acquired pneumonia and aspiration pneumonia
Original Note:
Today's Communication/Plan
-
Discharge today
Assessment / Plan
Assessment / Plan
Physical Exam
General: Comfortable and Conversant
HEENT: Normocephalic
Respiratory: Rales (Diffuse, more prominent in lower regions) and Non Labored Respirations. ON ROOM AIR OXYGEN.
Cardiac: S1/S2 and Regular Rhythm
GI: Soft and Non Distended. Positive bowel sounds.
Musculoskeletal: No Cyanosis and No Edema
Skin: Warm and Dry
Neuro: Awake, Alert and Nonfocal/grossly intact
Psych: Calm

Echocardiogram as per pediatric physiatrist's report:
'CONCLUSIONS
Normal left ventricular size, wall thickness and systolic function. No
regional wall motion abnormalities are seen. Left ventricular ejection fraction
is 55-60% by visual estimate. Normal diastolic function.
Normal right ventricular size and function.
Mild aortic regurgitation.'

Assessment/Plan
Acute hypoxic respiratory failure, POA, now resolved - secondary to Pneumonia
-Oxygen weaned off
Community Acquired Pneumonia
MRSA Colonization
SNF Resident
-Status post Rocephin and Doxycycline
-Continue Linezolid and Cefepime as per Infectious Disease
-Anticipate transition (on 09/30/23) to P.O. antibiotics: Levofloxacin 750mg po qd and Doxycycline 100mg po bid through 10/03/23. Qtc 451 ms.
-Blood cultures showed no growth to date
-Consulted ID, recommendations appreciated
History of recurrent aspiration pneumonias with resultant pulmonary scarring
Pulmonary Fibrosis
-Pulmonary consulted, recommendations appreciated
-Follow-up with pulmonary after discharge
Hypotension - was worsened suspected by current Pneumonia
-Echocardiogram was unremarkable except for mild aortic regurgitation.
-Random AM cortisol was 20.9
-TSH was high at 27.60 and Free T4 was 0.92
-Recheck thyroid studies and follow-up with endocrinology outpatient
Prolonged QTc
History of Prolonged QTc
-Minimize QTc prolonging-medications as much as possible
-Okay to continue Levaquin above as long as QTc acceptable
Seizure Disorder
-Continue levetiracetam
Hypothyroidism
-Continue levothyroxine
GERD
Achalasia and Esophageal Strictures status [place] [address] Hager (but unclear if patient had pneumatic dilatation in the past)
History of Reflux Esophagitis
-Continue Pepcid
-Consulted GI, recommendations appreciated
-Continue Pantoprazole 40 mg PO BID
-Pepcid at bedtime 20 mg
-Patient's brother does not want patient to undergo any invasive procedures including endoscopy or a PEG and he is aware of the risk of aspiration but would like patient to continue the dysphagia diet as tolerated
-Appreciate GI evaluation and recommendations
Underweight
Down syndrome
Dementia
History of C. Diff colitis
History of COVID pneumonia
History of cranial abscess (status post drainage in 2005)
DVT Prophylaxis: Lovenox
Diet: IDDSI Level 5 (minced and moist) and Moderately Thick Liquids; Meds crushed in applesauce; Allow ice chips per ARHP guidelines including oral care via suction toothbrush; Aspiration and reflux precautions; Assist to feed as needed to ensure
cyclic ingestion and appropriate amount and rate of intake.
Code Status: DNR per POLST, this was confirmed with patient's brother at the bedside at the time of admission
More than 30 minutes spent in discharge including
Final examination of the patient
Summarizing hospital stay
Instructions for continuing care to all relevant caregivers
Preparation of discharge records, prescriptions, and referral forms
Total time spent (in minutes): 38
Anticipated Discharge: Today
Subjective/Interval History
-
Date of Service: September 30, 2023
Patient was seen and examined. He reported no new symptoms or complaints.
Objective Data
-
Labs:
Laboratory Results
09/30/23
04:27
WBC 5.4
Hgb 11.0 L
Hct 34.4 L
Plt Count 201
Sodium 136
Potassium 3.9
Chloride 104
Carbon Dioxide 31 H
BUN 7 L
Creatinine 0.8
Glucose 97
Calcium 8.3 L
Vital Signs:
Vital Signs
Temp Pulse Resp BP Pulse Ox
98.0 F 54 16 92/44 96
09/30/23 11:00 09/30/23 11:00 09/30/23 11:00 09/30/23 11:00 09/30/23 11:00
I&O
09/29/23 09/30/23 10/01/23
06:59 06:59 06:59
Intake Total 980 / 980 960 / 960
Balance 980 / 980 960 / 960
--- NOTE | 2023-09-30 14:55 | W.DS.TRANS ---
DC Summary - Director Of Group Sales
-
Discharge Instructions:
Discharge Diagnosis/Procedures Acute hypoxic respiratory failure now resolved -
secondary to Pneumonia
Community Acquired Pneumonia
MRSA Colonization
SNF Resident
Mild aortic regurgitation
History of recurrent aspiration pneumonias with
resultant pulmonary scarring
Pulmonary Fibrosis
Hypotension - was worsened suspected by current
Pneumonia
Prolonged QTc
History of Prolonged QTc
Seizure Disorder
Hypothyroidism
Gastroesophageal Reflux Disease
Achalasia and Esophageal Strictures status post
dil[place] [address] Hager (but unclear if
patient had pneumatic dilatation in the past)
History of Reflux Esophagitis
Underweight
Down syndrome
Dementia
History of C. Diff colitis
History of COVID pneumonia
History of cranial abscess (status post drainage
in 2005)
Diet Other diet
Additional Diets IDDSI Level 5 (minced and moist) and Moderately
Thick Liquids; Meds crushed in applesauce; Allow
ice chips per ARHP guidelines including oral
care via suction toothbrush; Aspiration and
reflux precautions; Assist to feed as needed to
ensure cyclic ingestion and appropriate amount
and rate of intake.
Instructions:
Stand-Alone Forms:
Changes to Home Medications: Yes
Discharge Medications:
DC Medications w/original date entered in [facility]
levetiracetam 250 mg tablet 250 mg PO BID@0830,2029 Seizures 07/08/20
levothyroxine 75 mcg tablet 75 mcg PO DAILY@0630 Thyroid 07/08/20
acetaminophen 325 mg tablet (Tylenol) 650 mg PO Q4H PRN mild pain/fever>100.4 09/26/23
albuterol sulfate 90 mcg/actuation aerosol inhaler 1 puff inhalation R Q4HPRN PRN dyspnea 09/26/23
bisacodyl 10 mg rectal suppository 10 mg NC DAILY PRN q 3 days when no BM and MOM/lactulose ineffective 09/26/23
magnesium hydroxide 400 mg/5 mL oral suspension (Milk of Magnesia) 30 ml PO HSPRN PRN constipation 09/26/23
sennosides 8.6 mg tablet (senna) 8.6 mg PO DAILY@2030 Constipation 09/26/23
doxycycline hyclate 100 mg capsule 100 mg PO Q12 4 days #7 caps 09/30/23
famotidine 20 mg tablet 20 mg PO HS #30 tabs 09/30/23
levofloxacin 750 mg tablet 750 mg PO DAILY 3 days #3 tabs 09/30/23
pantoprazole 40 mg tablet,delayed release 40 mg PO BID #60 tabs 09/30/23
Home Medication Changes
Doxycycline, Levofloxacin, and Pantoprazole are all new medications
Famotidine dosing changed to 20 mg HS (instead of 10 mg Q12H)
Pending Results: Yes
Additional Pending Results:
Final results of microbiology lab studies from the hospitalization
Total time spent discharging patient (in min): 38
[2023-09-30 15:00] VITALS: BP 103/44
--- NOTE | 2023-09-30 15:49 | CM ---
Patient has been medically cleared for discharge back to [facility] for LTC. Magi in admissions has been notified as well as [id number], Barbi Hinton. Transport to be scheduled.
NURSE TO NURSE REPORT # [phone]
FAX # [phone]
[2023-09-30] MEDS: LOVENOX SC (17:17)
[2023-09-30] MEDS: SENOKOT 8.59999999999999964 MG PO (19:38)
[2023-09-30] MEDS: VIBRAMYCIN 100 MG PO (19:38)
--- NOTE | 2023-09-30 19:51 | PTCARENOTE ---
Transport arrived 1929. Pt changed to clean and dry attends. 2000 meds given. No IV to d/c. Discharge in hospital gown. No belongings in the room or at bedside. Report given to transport at bedside, Report given to prison by daysmoft nurse.
--- NOTE | 2023-10-02 15:46 | W.DCSUMMARY ---
Discharge Summary
Discharge Data
Date of Admission: 09/26/23
Date of Discharge: 09/30/23
Total time spent discharging patient (in min): 38
-
Pending Results: Yes
Additional Pending Results:
Final results of microbiology lab studies from the hospitalization
Hospital Course
53 y/o male with past medical history of pulmonary fibrosis, seizure disorder, hypothyroidism, GERD, Down syndrome, Dementia, Achalasia and Esophageal Strictures, history of recurrent aspiration pneumonias with resultant pulmonary scarring, C. Diff
colitis, COVID pneumonia, history of prolonged QTc and cranial abscess (status post drainage in 2005) who presented with concerns of shortness of breath starting the day before presentation, as well as hypoxia (pulse ox was 80% on room air at
patient's facility). Patient resides at [facility][1]. Patient was also found to be hypotensive below baseline blood pressure levels, as per patient's family present in the emergency room at the time of admission.
Patient had en echocardiogram done which showed as per flower grader's report '.....Mild aortic regurgitation' and 'Left ventricular ejection fraction is 55-60% by visual estimate' -- please see the separate echocardiogram report for more details.
Patient's chest CT (please see the separate Chest CT report for all the details and findings) suggested worsening fibrosis and a subcarinal mass, infectious disease was consulted and agreed with Ceftriaxone and Doxycycline for patient's
community-acquired pneumonia. Pulmonary was consulted and noted that patient's family declined further intervention for the pulmonary fibrosis. Patient was found to be positive for Methicillin-Resistant Staphylococcus Aureus (MRSA) and infectious
disease broadened patient's antibiotics to PO linezolid and intravenous Cefepime. With regards to antibiotics, patient on discharge was able to be discharged on Levofloxacin and Doxycycline. Gastroenterology was consulted for possible dilation of
patient's esophagus, but patient's brother mentioned that he does not want patient to undergo any invasive procedures including endoscopy or a percutaneous endoscopic gastrostomy - they were aware of the risk of aspiration but would like patient to
continue the dysphagia diet as tolerated.
Discharge Plan
-
Patient Disposition: Long-Term/SNF
Discharge Diagnosis/Procedures: Acute hypoxic respiratory failure now resolved - secondary to Pneumonia
Community Acquired Pneumonia
MRSA Colonization
SNF Resident
Mild aortic regurgitation
History of recurrent aspiration pneumonias with resultant pulmonary scarring
Pulmonary Fibrosis
Hypotension - was worsened suspected by current Pneumonia
Prolonged QTc
History of Prolonged QTc
Seizure Disorder
Hypothyroidism
Gastroesophageal Reflux Disease
Achalasia and Esophageal Strictures status [place] [address] Hager (but unclear if patient had pneumatic dilatation in the past)
History of Reflux Esophagitis
Underweight
Down syndrome
Dementia
History of C. Diff colitis
History of COVID pneumonia
History of cranial abscess (status post drainage in 2005)
Condition: Fair
Diet: Other diet
Additional Diets: IDDSI Level 5 (minced and moist) and Moderately Thick Liquids; Meds crushed in applesauce; Allow ice chips per ARHP guidelines including oral care via suction toothbrush; Aspiration and reflux precautions; Assist to feed as needed
to ensure cyclic ingestion and appropriate amount and rate of intake.
Activity Restrictions/Additional Instructions:
Check electrocardiogram daily while patient is on Levofloxacin antibiotics to closely monitor patient's QTc interval.
DIET/FEEDING: IDDSI Level 5 (minced and moist) and Moderately Thick Liquids; Meds crushed in applesauce; Allow ice chips per ARHP guidelines including oral care via suction toothbrush; Aspiration and reflux precautions; Assist to feed as needed to
ensure cyclic ingestion and appropriate amount and rate of intake.
Referrals:
Diane Hayden MD [Consulting Staff] - in less than 1 week (Elevated TSH at 27.60 in the hospital, also has chronic hypotension)
Barbara Tran CRNP [Specified Professional Personl] - in two to four weeks
UNKNOWN,NO INTERVIEW [Family Provider] -
Prescriptions:
New
famotidine 20 mg Tablet
20 mg PO HS Qty: 30 1RF
pantoprazole 40 mg Tablet,Delayed Release (Dr/Ec)
40 mg PO BID Qty: 60 1RF
doxycycline hyclate 100 mg Capsule
100 mg PO Q12 4 Days Qty: 7 0RF
levofloxacin 750 mg Tablet
750 mg PO DAILY 3 Days Qty: 3 0RF
Rx Instructions:
Start on October 01, 2023
Continued
levothyroxine 75 MCG tablet
75 mcg PO DAILY@629
levetiracetam 250 MG tablet
250 mg PO BID@
sennosides [senna] 8.6 mg Tablet
8.6 mg PO DAILY@2029
acetaminophen [Tylenol] 325 mg Tablet
650 mg PO Q4H MDD 3,000 mg PRN (Reason: mild pain/fever>100.4)
magnesium hydroxide [Milk of Magnesia] 400 mg/5 mL Suspension
30 ml PO HSPRN PRN (Reason: constipation)
bisacodyl 10 mg Suppository
10 mg [place] DAILY PRN (Reason: q 3 days when no BM and MOM/lactulose ineffective)
albuterol sulfate 90 mcg/actuation Hfa Aerosol Inhaler
1 puff INHALATION R Q4HPRN PRN (Reason: dyspnea)
Discontinued
famotidine 10 mg Tablet
10 mg PO Q12H@
No Action
levetiracetam [Keppra] 250 mg tablet
See Rx Instructions .ROUTE .COMPLEX Qty: 60 0RF
Rx Instructions:
take 250 mg PO qam and 500 mg po qPM
Discharge Orders:
Discharge Patient (As Directed); Ordered 09/30/23
Ordered By: Alok Romero
Discharge Date and Time
Discharge Date/Time: 09/30/23 19:54
== END 2023-09-30 19:54 | DRG 177 ==
LOC: 2 NORTH 13:11
PROVIDERS: Physician Assistant; Physician Assistant Medical; ADMITTING PHYSICIAN Hospitalist; CONSULT PHYSICIAN Internal Medicine Critical Care Medicine; CONSULT PHYSICIAN Internal Medicine Gastroenterology; CONSULT PHYSICIAN Internal Medicine Infectious Disease; EMERGENCY PHYSICIAN Emergency Medicine
DX: J69.0 Pneumonitis due to inhalation of food and vomit (principal); J96.01 Acute respiratory failure with hypoxia; Z68.1 Body mass index [BMI] 19.9 or less, adult; Q90.9 Down syndrome, unspecified; R63.6 Underweight; E03.9 Hypothyroidism, unspecified; J84.10 Pulmonary fibrosis, unspecified; B95.62 Methicillin resistant Staphylococcus aureus infection as the cause of diseases classified elsewhere; G40.909 Epilepsy, unspecified, not intractable, without status epilepticus; K21.9 Gastro-esophageal reflux disease without esophagitis; K22.0 Achalasia of cardia; Z66 Do not resuscitate; Z86.16 Personal history of COVID-19
CPT/HCPCS: 71046; 71275; 74230; 80048; 80053; 82533; 83605; 83735; 83880; 84439; 84443; 84484; 85025; 85027; 85379; 87040; 87070; 87147; 87502; 87811; 92610; 92611; 93005; 93306; 96365; 96375; 97116; 97162; 97167; 99285; Q9967

== ENCOUNTER 2023-10-02 14:33 | Emergency (ER) | payer MEDICARE, OTHER, SELFPAY ==
[2023-10-02 14:52] VITALS: BP 90/61
[2023-10-02 15:00] VITALS: BP 88/59
[2023-10-02 15:04] LABS: % Basophils 1.4 % (0-2); % Immature Granulocytes 0.8 % (0-0.5); % Lymphocytes 24.6 % (20.5-51.1); % Monocytes 6.7 % (1.7-9.3); % Neutrophils 63.5 % (42.2-75.2); Absolute Basophils 0.1 10^3/uL (0-0.2); Absolute Eosinophils 0.2 10^3/uL (0-0.7); Absolute Lymphocytes 1.2 10^3/uL (1.2-3.4); Absolute Monocytes 0.3 10^3/uL (0.1-0.6); Absolute Neutrophils 3.2 10^3/uL (1.4-6.5); Hematocrit 38.7 % (39.0-52.0); Hemoglobin 12.5 g/dL (13.0-18.0); Mean Corp Hgb Conc. 32.3 g/dL (33.0-37.0); Mean Corpuscular Volume 89.8 fL (80.0-94.0); Mean Platelet Volume 9.6 fL (7.4-10.4); Nucleated Red Blood Cells % 0 % (-); Platelet Count 232 10^3/uL (130-400); Red Blood Cell Count 4.31 10^6/uL (4.70-6.10); Red Cell Dist. Width 17.4 % (11.5-14.5); White Blood Cell Count 5.1 10^3/uL (4.8-10.8)
--- NOTE | 2023-10-02 15:15 | ED.GENMED ---
History of Present Illness
<Toshia Small PA-C - Last Filed: 10/04/23 15:07>
General
Chief Complaint: Seizure
Source: patient and family
Exam Limitations: clinical condition and developmental stage
Time Seen by Provider: 10/02/23 14:49
Nursing documentation reviewed up to this point in time: agreed with
Travel History
Have you had any contact with someone who has COVID-19?: No
Do you have any symptoms of coronavirus? Fever > 100 degrees, chills, cough, shortness of breath, sore throat, loss of taste or smell, muscle aches, or headache?: No
History of Present Illness
History of Present Illness:
pt is a 53 y/o M with h/o downs syndrome, pulm fibrosis, dementia, pna
was just hospitalized for pna, likely aspiration last week, d/c on 09/29 on abx (levaquin, doxy)
has had 1 seizure in the past, 2006 and has been on keppra ever since
today was witnessed by stsaff to have 2 seizures, 1 at 9 am
Past History
<Toshia Small PA-C - Last Filed: 10/04/23 15:07>
Past History
ED Past Medical History: GERD, Seizures, Hypothyroidism, Other (Achalasia, C. difficile colitis, GERD, hypothyroidism, Down's syndrome ) and Other (Down's syndrome)
ED Past Surgical History: Brain (Cranial abscess surgery 2005)
Social History
Tobacco: Non-smoker
Alcohol: None
Personal: Single
Living: with family
Employment: Employed (Grocery store)
Family History
Family History: Negative CAD
Phy Exam
<Toshia Small PA-C - Last Filed: 10/04/23 15:07>
Physical Exam
Physical Exam:
GENERAL: Alert , in no apparent distress
HEAD: NCAT
downs appearance, short stature
EYE: pupils equal and reactive, no nystagmus, photophobia
NECK: Supple,full rom, nontender
ENT: o/p clr, mm dry
small abrasion right lateral tongue, dried blood outside mouth
CARDIAC: Regular rate and rhythm . no edema
LUNGS: Clear breath sounds bilaterally, no acute respiratory distress, no wheezes/rales/rhonchi
ABDOMEN: Soft, without focal tenderness, no r/g, no cvat
NEUROLOGICAL: Alert and orientedx 2, cn intact, no facial asymmetry, 5/5 strength in UE/LE, moves all extremiteis; h/o downs
SKIN: Warm and dry, skin intact.
MUSCULOSKELETAL: No edema, well perfused.
PSYCH downs, pt is able to communicate, but often times says 'yes' in response to questions
Course
<Toshia Small PA-C - Last Filed: 10/04/23 15:07>
Orders/Labs/Results
Orders:
Orders
10/02/23 14:55
Complete Blood Count/With Diff Urgent
Comprehensive Metabolic Panel Urgent
Keppra (Levetiracetam) [S] Urgent
10/02/23 15:16
Electrocardiogram (*1) Urgent
Reason for Study: QTc Monitoring
EKG- Treatment ONCE
10/02/23 15:20
Levetiracetam Injectable [Keppra] 500 mg IV NOW STA
10/02/23 16:33
0.9% Sodium Chloride 500 ml [Nss] 500 ml IV BOLUS
10/02/23 16:44
CT Head W/o Iv Contrast Urgent
Comment:
Reason For Exam: seizure x 2, h/o brain abscess
Abnormal Lab Results
10/02/23
14:55
RBC 4.31 L 10^6/uL
(4.70-6.10)
Hgb 12.5 L g/dL
(13.0-18.0)
Hct 38.7 L %
(39.0-52.0)
MCHC 32.3 L g/dL
(33.0-37.0)
RDW 17.4 H %
(11.5-14.5)
Immature Gran % 0.8 H %
(0-0.5)
Glucose 105 H mg/dl
(70-99)
AST 62 H U/L
(17-59)
10/02/23 14:55
10/02/23 14:55
Vital Signs
Initial and Last Documented VS:
Initial Vital Signs
Temp Pulse Resp BP Pulse Ox
97.9 F 59 14 90/61 89
10/02/23 14:52 10/02/23 14:52 10/02/23 14:52 10/02/23 14:52 10/02/23 14:52
Last Documented Vital Signs
Temp Pulse Resp BP Pulse Ox
97.9 F 42 13 91/60 100
10/02/23 14:52 10/02/23 19:00 10/02/23 19:00 10/02/23 19:00 10/02/23 14:53
Stephanylt;Brandon Espana, DO - Last Filed: 10/02/23 19:17>
Orders/Labs/Results
Orders:
Orders
10/02/23 14:55
Complete Blood Count/With Diff Urgent
Comprehensive Metabolic Panel Urgent
Keppra (Levetiracetam) [S] Urgent
10/02/23 15:16
Electrocardiogram (*1) Urgent
Reason for Study: QTc Monitoring
EKG- Treatment ONCE
10/02/23 15:20
Levetiracetam Injectable [Keppra] 500 mg IV NOW STA
10/02/23 16:33
0.9% Sodium Chloride 500 ml [Nss] 500 ml IV BOLUS
10/02/23 16:44
CT Head W/o Iv Contrast Urgent
Comment:
Reason For Exam: seizure x 2, h/o brain abscess
Abnormal Lab Results
10/02/23
14:55
RBC 4.31 L 10^6/uL
(4.70-6.10)
Hgb 12.5 L g/dL
(13.0-18.0)
Hct 38.7 L %
(39.0-52.0)
MCHC 32.3 L g/dL
(33.0-37.0)
RDW 17.4 H %
(11.5-14.5)
Immature Gran % 0.8 H %
(0-0.5)
Glucose 105 H mg/dl
(70-99)
AST 62 H U/L
(17-59)
10/02/23 14:55
10/02/23 14:55
Vital Signs
Initial and Last Documented VS:
Initial Vital Signs
Temp Pulse Resp BP Pulse Ox
97.9 F 59 14 90/61 89
10/02/23 14:52 10/02/23 14:52 10/02/23 14:52 10/02/23 14:52 10/02/23 14:52
Last Documented Vital Signs
Temp Pulse Resp BP Pulse Ox
97.9 F 42 13 91/60 100
10/02/23 14:52 10/02/23 19:00 10/02/23 19:00 10/02/23 19:00 10/02/23 14:53
Stephanylt;Toshia Small PA-C - Last Filed: 10/04/23 15:07>
MDM/Problems Addressed
Differential Diagnosis Includes:
seiuzre, hyponatremia, sepsi
MDM/Problems Addressed:
53-year-old male history of Down's syndrome coming from a retirement, remote 1 seizure in the past on Keppra presents for 2 seizure-like activities witnessed today by staff, the second sounding like it could have been a syncopal event after he was
yelling. Patient did bite his tongue however. He recovered to his baseline mental status, he does have some mild dementia. Patient was just hospitalized for hypoxia, he does have a history of pulmonary fibrosis and has now been on O2 since his
discharge. He also is on antibiotics. It is possible that the antibiotics for the pneumonia itself lowered his seizure threshold causing him to have 2 seizures today. There is no other obvious cause for the seizures. I spoke with the neurologist
on-call Dr. Gaona who suggested that in the setting of previous seizures/epilepsy it would not be necessary to hospitalize him for 2 seizures today. We could load him with 500 IV Keppra and change his dose from 250 Milligrams twice daily to 250
mg in the morning [id number] mg at night.
Initially the patient's brother who is the POA declined any CT imaging but on reassessment his was really pushing for a CAT scan as the patient has had a history of remote brain abscesses in the past. It does not sound as if they would pursue
any operative management, he has a DNR and is mostly comfort measures but nevertheless they are requesting the imaging. The plan is to check the head CT and if negative the patient will be transported back to his retirement.
<Brandon Espana, DO - Last Filed: 10/02/23 19:17>
*Radiology
Radiology exam reviewed: radiology read reviewed (CT head no acute findings)
*Pulse Oximetry
Patient hypoxic: no
*EKG
Interpreted by ED Provider?: Yes
EKG Intrepretation Date: 10/02/23
EKG Intrepretation Time: 15:30
Interpretation: abnormal
Comparison EKG: no changes
Heart Rate: 58
Rate: bradycardiac
Rhythm: sinus
[place]: normal axis
Interval: normal interval
QRS Pattern: right bundle branch block
Ischemia: no ischemia
*Cartography/Mapping Technician Interpretation
Rate: bradycardiac
Interpretation: abnormal
Heart Rate: 57
Rhythm: sinus
*Critical Care Note
Total Time (30-74mins, 75-104mins- exclusive of procedures): Not Applicable
<Brandon Espana DO - Last Filed: 10/02/23 19:17>
Patient Management
Social determinants of health affecting care: Living situation and Strong social support
Escalation/DeEscalation of care consider admission/obs:
Admit not indicated
ED Attending Note
<Toshia Small PA-C - Last Filed: 10/04/23 15:07>
-
Portions of this chart may have been created with voice recognition software.� Occasional wrong word or��sound alike� substitutions may have occurred due to the inherent limitations of voice recognition software.
<Brandon Espana, - Last Filed: 10/02/23 19:17>
ED Attending Note
Patient seen and examined by attending physician: Yes
I performed a history and physical exam of patient and discussed management with resident, I reviewed resident's note and agree with documented findings and plan of care.: Yes
ED Attending Note:
I have reviewed and agree with history and treatment plan by Loan Small. My exam revealed 53-year-old male no acute distress, awake and alert, at baseline. Stable for discharge. CT head no acute findings.
Discharge Plan
Departure
Patient Disposition: Home (Routine Discharge)
Date of Disposition: 10/02/23
Time of Disposition: 19:11
Patient with high blood pressure during this ER visit?: No
Condition: Good
Discharge Problem:
Seizure, Down syndrome, Seizure disorder
Instructions: Seizures, Adult (DC)
Prescriptions:
New
levetiracetam [Keppra] 250 mg tablet
See Rx Instructions .ROUTE .COMPLEX Qty: 60 0RF
Rx Instructions:
take 250 mg PO qam and 500 mg po qPM
No Action
levothyroxine 75 MCG tablet
75 mcg PO DAILY@629
levetiracetam 250 MG tablet
250 mg PO BID@
sennosides [senna] 8.6 mg Tablet
8.6 mg PO DAILY@2029
acetaminophen [Tylenol] 325 mg Tablet
650 mg PO Q4H MDD 3,000 mg PRN (Reason: mild pain/fever>100.4)
magnesium hydroxide [Milk of Magnesia] 400 mg/5 mL Suspension
30 ml PO HSPRN PRN (Reason: constipation)
bisacodyl 10 mg Suppository
10 mg [place] DAILY PRN (Reason: q 3 days when no BM and MOM/lactulose ineffective)
albuterol sulfate 90 mcg/actuation Hfa Aerosol Inhaler
1 puff INHALATION R Q4HPRN PRN (Reason: dyspnea)
famotidine 20 mg Tablet
20 mg PO HS Qty: 30 1RF
pantoprazole 40 mg Tablet,Delayed Release (Dr/Ec)
40 mg PO BID Qty: 60 1RF
doxycycline hyclate 100 mg Capsule
100 mg PO Q12 4 Days Qty: 7 0RF
levofloxacin 750 mg Tablet
750 mg PO DAILY 3 Days Qty: 3 0RF
Rx Instructions:
Start on October 01, 2023
Referrals:
Ilia Smith DO [Family Provider] - Call in 1-3 days for appt
Activity Restrictions/Additional Instructions:
Give Yong 500 mg of Keppra tonight orally.
Tomorrow he can start his regimen of 250 mg of Keppra in the morning and 500 mg at night. He should be followed up by a neurologist since he has not had a seizure in many years. Return for repetitive
Seizure activity, change in mental status, high fever or any concerns.
Interventions
Interventions:
*Risk Screen - Suicide Last Done: 10/02/23 18:27
*General Assessment Last Done: 10/02/23 18:27
*Neglect/Abuse Screening Last Done: 10/02/23 18:27
ED- Fall Risk Assessment Last Done: 10/02/23 18:27
*ED COVID-19 Vaccine History Last Done: 10/02/23 18:27
*Nursing Disposition Last Done: 10/02/23 19:27
ED- Cardiac Assessment Last Done: 10/02/23 16:42
ED- Neurological Assessment Last Done: 10/02/23 16:42
ED- Pulmonary Assessment Last Done: 10/02/23 17:36
Discharge Date and Time
Discharge Date/Time: 10/02/23 19:27
[2023-10-02] MEDS: KEPPRA 500 MG IV (15:25)
[2023-10-02 15:28] LABS: ALT (SGPT) 39 U/L (0-50); AST (SGOT) 62 U/L (17-59); Albumin 3.6 g/dl (3.5-5.0); Alkaline Phosphatase 77 U/L (38-126); Blood Urea Nitrogen 10 mg/dl (9-20); Calcium 8.7 mg/dl (8.4-10.2); Carbon Dioxide 28 mmol/L (22-30); Chloride 102 mmol/L (98-107); Glucose 105 mg/dl (70-99); Potassium 4.7 mmol/L (3.5-5.1); Sodium 137 mmol/L (135-145); Total Bilirubin 1.1 mg/dl (0.2-1.3); Total Protein 7.9 g/dl (6.3-8.2); eGFR > 60.00
[2023-10-02 15:57] VITALS: BP 89/69
[2023-10-02 16:00] VITALS: BP 88/57
[2023-10-02] MEDS: NSS 500 IV (16:49)
[2023-10-02 17:00] VITALS: BP 86/54
[2023-10-02 19:00] VITALS: BP 91/60
[2023-10-05 04:45] LABS: Keppra (Levetiracetam) 7 ug/mL (10-40)
== END 2023-10-02 19:27 | disposition home or self-care (01) ==
LOC: EMR 14:33
PROVIDERS: Physician Assistant; EMERGENCY PHYSICIAN Emergency Medicine; FAMILY PHYSICIAN Student in an Organized Health Care Education/Training Program
DX: G40.909 Epilepsy, unspecified, not intractable, without status epilepticus (principal); Q90.9 Down syndrome, unspecified; J84.10 Pulmonary fibrosis, unspecified; F03.A0 Unspecified dementia, mild, without behavioral disturbance, psychotic disturbance, mood disturbance, and anxiety; K21.9 Gastro-esophageal reflux disease without esophagitis; E03.9 Hypothyroidism, unspecified; K22.0 Achalasia of cardia; Z79.899 Other long term (current) drug therapy
CPT/HCPCS: 99284; 96374; 96361; 70450; 80053; 80177; 85025; 93005

== ENCOUNTER → 2023-10-07 10:24 | Outpatient (REF) | payer OTHER, MEDICARE, SELFPAY ==
[2023-10-07 12:56] LABS: Free T4 1.11 ng/dl (0.78-2.19)
[2023-10-07 13:10] LABS: Cortisol, Random 12.9 ug/dl
== END ==
LOC: OLABN 10:24
PROVIDERS: ATTENDING PHYSICIAN Student in an Organized Health Care Education/Training Program
DX: E03.9 Hypothyroidism, unspecified (principal); R00.1 Bradycardia, unspecified
CPT/HCPCS: 36415; 82533; 84439; 84443

== ENCOUNTER → 2023-11-01 10:19 | Outpatient (REF) | payer OTHER, MEDICARE, SELFPAY ==
[2023-11-02 22:58] LABS: Keppra (Levetiracetam) 17 ug/mL (10-40)
== END ==
LOC: OLABN 10:19
PROVIDERS: ATTENDING PHYSICIAN Student in an Organized Health Care Education/Training Program
DX: G40.909 Epilepsy, unspecified, not intractable, without status epilepticus (principal)
CPT/HCPCS: 36415; 80177

== ENCOUNTER → 2023-11-18 09:04 | Outpatient (REF) | payer OTHER, MEDICARE, SELFPAY ==
[2023-11-18 11:12] LABS: TSH 9.37 uIU/ml (0.47-4.68)
== END ==
LOC: OLABN 09:04
PROVIDERS: ATTENDING PHYSICIAN Student in an Organized Health Care Education/Training Program
DX: E03.9 Hypothyroidism, unspecified (principal)
CPT/HCPCS: 36415; 84443

== ENCOUNTER → 2023-12-30 10:13 | Outpatient (REF) | payer MEDICARE, OTHER, SELFPAY ==
[2023-12-30 12:29] LABS: TSH 0.24 uIU/ml (0.47-4.68)
== END ==
LOC: OLABN 10:13
PROVIDERS: ATTENDING PHYSICIAN Student in an Organized Health Care Education/Training Program
DX: E03.9 Hypothyroidism, unspecified (principal)
CPT/HCPCS: 36415; 84443

== ENCOUNTER → 2024-04-04 10:38 | Outpatient (REF) | payer MEDICARE, OTHER, SELFPAY ==
[2024-04-04 12:41] LABS: Free T4 1.31 ng/dl (0.78-2.19)
[2024-04-04 12:54] LABS: TSH 0.06 uIU/ml (0.47-4.68)
== END ==
LOC: OLABN 10:38
PROVIDERS: ATTENDING PHYSICIAN Student in an Organized Health Care Education/Training Program
DX: E03.9 Hypothyroidism, unspecified (principal)
CPT/HCPCS: 36415; 84439; 84443

== ENCOUNTER → 2024-05-07 11:09 | Outpatient (REF) | payer MEDICARE, OTHER, SELFPAY ==
[2024-05-07 12:28] LABS: Free T3 4.53 pg/ml (2.77-5.27); Free T4 1.95 ng/dl (0.78-2.19)
[2024-05-07 12:42] LABS: TSH < 0.02 uIU/ml (0.47-4.68)
== END ==
LOC: OLABN 11:09
PROVIDERS: ATTENDING PHYSICIAN Student in an Organized Health Care Education/Training Program
DX: E03.9 Hypothyroidism, unspecified (principal)
CPT/HCPCS: 36415; 84439; 84443; 84481

== ENCOUNTER → 2024-05-12 09:00 | Outpatient (REF) | payer MEDICARE, OTHER, SELFPAY ==
[2024-05-12 13:39] LABS: Mean Corp Hgb Conc. 31.9 g/dL (33.0-37.0); Mean Corpuscular Hgb 29.6 pg (27.0-31.0); Mean Corpuscular Volume 92.7 fL (80.0-94.0); Mean Platelet Volume 12.4 fL (7.4-10.4); Platelet Count 244 10^3/uL (130-400); Red Blood Cell Count 5.07 10^6/uL (4.70-6.10); White Blood Cell Count 13.3 10^3/uL (4.8-10.8)
[2024-05-12 13:50] LABS: ALT (SGPT) 26 U/L (0-50); AST (SGOT) 38 U/L (17-59); Albumin 4.5 g/dl (3.5-5.0); Alkaline Phosphatase 132 U/L (38-126); Blood Urea Nitrogen 14 mg/dl (9-20); Calcium 9.8 mg/dl (8.4-10.2); Carbon Dioxide 31 mmol/L (22-30); Chloride 98 mmol/L (98-107); Glucose 86 mg/dl (70-99); Magnesium 2.4 mg/dl (1.6-2.3); Potassium 4.2 mmol/L (3.5-5.1); Sodium 140 mmol/L (135-145); Total Protein 8.8 g/dl (6.3-8.2); eGFR > 60.00
[2024-05-12 14:21] LABS: TSH 0.02 uIU/ml (0.47-4.68)
[2024-05-15 04:00] LABS: Keppra (Levetiracetam) 8 ug/mL (10-40)
== END ==
LOC: OLABN 09:00
PROVIDERS: ATTENDING PHYSICIAN Student in an Organized Health Care Education/Training Program
DX: G40.909 Epilepsy, unspecified, not intractable, without status epilepticus (principal); E03.9 Hypothyroidism, unspecified
CPT/HCPCS: 36415; 80053; 80177; 83735; 84443; 85027

== ENCOUNTER → 2024-05-21 10:31 | Outpatient (REF) | payer MEDICARE, OTHER, SELFPAY ==
[2024-05-22 21:01] LABS: Keppra (Levetiracetam) 22 ug/mL (10-40)
== END ==
LOC: OLABN 10:31
PROVIDERS: ATTENDING PHYSICIAN Student in an Organized Health Care Education/Training Program
DX: G40.909 Epilepsy, unspecified, not intractable, without status epilepticus (principal)
CPT/HCPCS: 36415; 80177

== ENCOUNTER → 2024-06-05 11:12 | Outpatient (REF) | payer MEDICARE, OTHER, SELFPAY | LOC: OLABN 11:12 | PROVIDERS: ATTENDING PHYSICIAN Student in an Organized Health Care Education/Training Program | DX: E03.9 Hypothyroidism, unspecified (principal) | CPT/HCPCS: 36415; 84443 ==

== ENCOUNTER → 2024-07-10 11:08 | Outpatient (REF) | payer MEDICARE, OTHER, SELFPAY | LOC: OLABN 11:08 | PROVIDERS: ATTENDING PHYSICIAN Student in an Organized Health Care Education/Training Program | DX: E03.9 Hypothyroidism, unspecified (principal) | CPT/HCPCS: 36415; 84443 ==

== ENCOUNTER → 2024-08-13 09:38 | Outpatient (REF) | payer MEDICARE, OTHER, SELFPAY | LOC: OLABN 09:38 | PROVIDERS: ATTENDING PHYSICIAN Student in an Organized Health Care Education/Training Program | DX: E03.9 Hypothyroidism, unspecified (principal) | CPT/HCPCS: 36415; 84443 ==

== ENCOUNTER → 2024-09-13 09:23 | Outpatient (REF) | payer MEDICARE, OTHER, SELFPAY | LOC: OLABN 09:23 | PROVIDERS: ATTENDING PHYSICIAN Student in an Organized Health Care Education/Training Program | DX: E03.9 Hypothyroidism, unspecified (principal) | CPT/HCPCS: 36415; 84443 ==

== ENCOUNTER → 2024-09-17 09:27 | Outpatient (REF) | payer MEDICARE, OTHER, SELFPAY ==
[2024-09-17 10:59] LABS: Free T3 3.63 pg/ml (2.77-5.27); Free T4 0.71 ng/dl (0.78-2.19)
[2024-09-17 15:14] LABS: HIV Combo Negative (Negative)
[2024-09-17 15:22] LABS: Hepatitis C Antibody Negative (Negative)
[2024-09-17 20:31] LABS: Hepatitis B Surface Antigen Reactive (Negative)
== END ==
LOC: OLABN 09:27
PROVIDERS: ATTENDING PHYSICIAN Student in an Organized Health Care Education/Training Program
DX: E03.9 Hypothyroidism, unspecified (principal)
CPT/HCPCS: 36415; 84439; 84443; 84481; 86803; 87340; 87341; 87389

== ENCOUNTER → 2024-09-25 09:08 | Outpatient (REF) | payer MEDICARE, OTHER, SELFPAY ==
[2024-09-25 10:03] LABS: Free T4 0.89 ng/dl (0.78-2.19)
== END ==
LOC: OLABN 09:08
PROVIDERS: ATTENDING PHYSICIAN Student in an Organized Health Care Education/Training Program
DX: E03.9 Hypothyroidism, unspecified (principal)
CPT/HCPCS: 36415; 84439; 84443

== ENCOUNTER → 2024-09-27 11:03 | Outpatient (REF) | payer MEDICARE, OTHER, SELFPAY ==
[2024-09-27 18:28] LABS: Hepatitis B Surface Antibody Negative
[2024-09-27 20:33] LABS: Hepatitis B Surface Antigen Reactive (Negative)
[2024-09-27 20:35] LABS: Hepatitis B Core Ab, IgM Negative (Negative)
[2024-09-28 11:58] LABS: Hepatitis Be Antibody Negative (Negative)
[2024-09-28 11:59] LABS: Hepatitis Be Antigen Negative (Negative)
== END ==
LOC: OLABN 11:03
PROVIDERS: ATTENDING PHYSICIAN Student in an Organized Health Care Education/Training Program
DX: B19.10 Unspecified viral hepatitis B without hepatic coma (principal)
CPT/HCPCS: 36415; 86705; 86706; 86707; 87340; 87341; 87350; 87517

== ENCOUNTER → 2024-10-06 08:05 | Outpatient (REF) | payer MEDICARE, OTHER, SELFPAY | LOC: OLABN 08:05 | PROVIDERS: ATTENDING PHYSICIAN Student in an Organized Health Care Education/Training Program | DX: B19.10 Unspecified viral hepatitis B without hepatic coma (principal) | CPT/HCPCS: 36415; 87517 ==

== ENCOUNTER → 2024-11-06 10:02 | Outpatient (REF) | payer MEDICARE, OTHER, SELFPAY ==
[2024-11-06 11:14] LABS: Free T3 4.29 pg/ml (2.77-5.27); Free T4 1.95 ng/dl (0.78-2.19)
[2024-11-06 11:27] LABS: TSH 0.04 uIU/ml (0.47-4.68)
== END ==
LOC: OLABN 10:02
PROVIDERS: ATTENDING PHYSICIAN Student in an Organized Health Care Education/Training Program
DX: E03.9 Hypothyroidism, unspecified (principal)
CPT/HCPCS: 36415; 84439; 84443; 84481

== ENCOUNTER 2024-11-16 10:55 | Emergency (ER) | payer MEDICARE, OTHER, SELFPAY ==
[2024-11-16 10:56] VITALS: BP 118/59
--- NOTE | 2024-11-16 11:00 | ED.GENMED ---
History of Present Illness
General
Chief Complaint: Seizure
Time Seen by Provider: 11/16/24 11:00
History of Present Illness
History of Present Illness:
TIME OF INITIAL ENCOUNTER: 11 AM
HPI: Patient came in by ambulance due to seizure. He reportedly fell earlier this morning and later had a seizure but does have seizure disorder. I called the nurse at [facility]. The nurse that I spoke to was a float nurse and did not have
clear history. However she was told that the patient was found on the ground in the bathroom and they presumed that he had fallen earlier in the day. At 10:10 AM, the patient had a seizure and then had another seizure and struck his forehead on
the floor. He is on Keppra. He apparently had a severe seizure about 3 months ago was sent to the hospital but records indicate that he was not at [facility].
EXAM:
GENERAL: The patient appears chronically ill, overall small stature and consistent with Down syndrome
HEENT: Dry oral mucosa
HEAD: There is small hematoma to the right side of the forehead
CARDIOVASCULAR: No murmurs, normal heart rate, regular rhythm, No chest wall tenderness
PULMONARY: No respiratory distress, breath sounds are clear and equal
ABDOMEN: Soft with no peritoneal signs, no tenderness
NEUROLOGIC: Excellent strength all extremities, no coordination deficits
PSYCHIATRIC: Limited insight and judgment
EXTREMITIES: Nontender, no edema, moves all extremities equally
SKIN: No rash, no lesions
NUMBER AND COMPLEXITY OF PROBLEMS ADDRESSED AT THE ENCOUNTER
� Chronic conditions affecting care: Dementia, developmental delay, seizure disorder, Down syndrome, pulmonary fibrosis, had brain abscess and had surgery at [place] December 2005
� Acute Exacerbation and/or Progression of Chronic Illness: This is an acute problem
� Differential Diagnosis includes: Exacerbation of seizure disorder, hypoglycemia, electrolyte abnormality, intracranial hemorrhage
AMOUNT AND/OR COMPLEXITY OF DATA TO BE REVIEWED AND ANALYZED
� I performed an independent evaluation of and my interpretation is:
EKG: Sinus 48, left axis deviation, nonspecific ST abnormality
CT: I reviewed CT of the head and see no acute intracranial abnormality but left-sided encephalomalacia against
X-rays:
Laboratory Studies: CBC and chemistries unremarkable.
Other:
� Review of other/old records: The patient was admitted here 1 year ago and was admitted with hypoxia and treated for pneumonia and was found to be positive for MRSA. The patient had a head CT September 2023 that showed left
frontoparietal craniotomy and encephalomalacia.
� Clinical information was obtained by an independent historian: Spoke to the [id number] at bedside
� Prescriptions/Medications Considered but not given:
� Further testing considered but not performed:
RISK OF COMPLICATIONS AND/OR MORBIDITY OR MORTALITY OF PATIENT MANAGEMENT
� Social determinants of health affecting care: Resides at [facility]
� Discussion with other providers: I spoke to Dr. Dr. Lozano who recommends increasing the Keppra dosing from 500 mg twice daily to 500 mg every morning and 750 mg every afternoon
� Escalation of care including admission/observation vs risk of discharge considered: The patient has not seized while in the emergency department. Kkrpzt-ss-yan states that he is at his baseline mental status.
ANY OTHER UPDATES:
Past History
Past History
ED Past Medical History: GERD, Seizures, Hypothyroidism, Other (Achalasia, C. difficile colitis, GERD, hypothyroidism, Down's syndrome ) and Other (Down's syndrome)
ED Past Surgical History: Brain (Cranial abscess surgery 2005)
Social History
Tobacco: Non-smoker
Alcohol: None
Personal: Single
Living: with family
Employment: Employed ([employer] store)
Family History
Family History: Negative CAD
Phy Exam
Physical Exam
Physical Exam:
See HPI
Course
Orders/Labs/Results
Orders:
Orders
11/16/24 11:11
CT Head W/o Iv Contrast Urgent
Comment:
Reason For Exam: seizure after fall; h/o seizure
11/16/24 11:42
Complete Blood Count/With Diff Urgent
Comprehensive Metabolic Panel Urgent
11/16/24 11:54
Electrocardiogram (*1) Urgent
Reason for Study: Syncope
EKG- Treatment ONCE
11/16/24 12:10
0.9% Sodium Chloride 1000 ml [Nss] 1,000 ml IV BOLUS
Abnormal Lab Results
11/16/24
11:42
MCHC 32.1 L g/dL
(33.0-37.0)
RDW 15.6 H %
(11.5-14.5)
Abs Immat Gran (auto) 0.1 H 10^3/uL
(0-0.05)
Absolute Lymphs (auto) 1.1 L 10^3/uL
(1.2-3.4)
Immature Gran % 1.0 H %
(0-0.5)
Lymphocytes % 18.9 L %
(20.5-51.1)
Carbon Dioxide 32 H mmol/L
(22-30)
Glucose 114 H mg/dl
(70-99)
Total Protein 8.6 H g/dl
(6.3-8.2)
11/16/24 11:42
11/16/24 11:42
Vital Signs
Initial and Last Documented VS:
Initial Vital Signs
Temp Pulse Resp BP
36.0 C L 55 18 118/59
11/16/24 10:56 11/16/24 10:56 11/16/24 10:56 11/16/24 10:56
Last Documented Vital Signs
Temp Pulse Resp BP Pulse Ox
36.0 C L 43 13 104/59 94
11/16/24 10:56 11/16/24 12:45 11/16/24 12:45 11/16/24 12:02 11/16/24 12:45
*Critical Care Note
Total Time (30-74mins, 75-104mins- exclusive of procedures): Not Applicable
ED Attending Note
-
Portions of this chart may have been created with voice recognition software.� Occasional wrong word or��sound alike� substitutions may have occurred due to the inherent limitations of voice recognition software.
Discharge Plan
Departure
Patient Disposition: Home (Routine Discharge)
Date of Disposition: 11/16/24
Time of Disposition: 13:12
Patient with high blood pressure during this ER visit?: Yes
Discharge Problem:
Breakthrough seizure
Instructions: Seizures, Adult (DC)
Prescriptions:
New
levetiracetam [Keppra] 250 mg tablet
See Rx Instructions .ROUTE .COMPLEX Qty: 150 0RF
Rx Instructions:
Levetiracetam 250mg TWO tabs each morning and THREE tabs each evening
No Action
levothyroxine 75 MCG tablet
75 mcg PO DAILY@0630
levetiracetam 250 MG tablet
250 mg PO BID@829,2029
sennosides [senna] 8.6 mg Tablet
8.6 mg PO DAILY@2029
acetaminophen [Tylenol] 325 mg Tablet
650 mg PO Q4H MDD 3,000 mg PRN (Reason: mild pain/fever>100.4)
magnesium hydroxide [Milk of Magnesia] 400 mg/5 mL Suspension
30 ml PO HSPRN PRN (Reason: constipation)
bisacodyl 10 mg Suppository
10 mg CO DAILY PRN (Reason: q 3 days when no BM and MOM/lactulose ineffective)
albuterol sulfate 90 mcg/actuation Hfa Aerosol Inhaler
1 puff INHALATION R Q4HPRN PRN (Reason: dyspnea)
famotidine 20 mg Tablet
20 mg PO HS Qty: 30 1RF
pantoprazole 40 mg Tablet,Delayed Release (Dr/Ec)
40 mg PO BID Qty: 60 1RF
doxycycline hyclate 100 mg Capsule
100 mg PO Q12 4 Days Qty: 7 0RF
levofloxacin 750 mg Tablet
750 mg PO DAILY 3 Days Qty: 3 0RF
Rx Instructions:
Start on October 01, 2023
levetiracetam [Keppra] 250 mg tablet
See Rx Instructions .ROUTE .COMPLEX Qty: 60 0RF
Rx Instructions:
take 250 mg PO qam and 500 mg po qPM
Referrals:
Ilia Smith DO [Family Provider] -
Activity Restrictions/Additional Instructions:
CAT scan of the brain shows no acute abnormality. Basic blood work is unremarkable. Vital signs are normal. I spoke to one of our neurologist. She recommends that he increase the Keppra from 500 mg twice a day to: 500 mg in the morning and 750
mg in the evening. Return here if worse or other concerns.
Interventions
Interventions:
*Risk Screen - Suicide Last Done: 11/16/24 10:56
*General Assessment Last Done: 11/16/24 10:56
*Neglect/Abuse Screening Last Done: 11/16/24 10:56
*ED- Fall Risk Assessment Last Done: 11/16/24 10:56
*ED COVID-19 Vaccine History Last Done: 11/16/24 10:56
ED- Cardiac Assessment Last Done: 11/16/24 11:07
ED- Neurological Assessment Last Done: 11/16/24 10:56
ED- Pulmonary Assessment Last Done: 11/16/24 10:56
Discharge Date and Time
Print Language: SYRIAC
[2024-11-16 11:01] VITALS: BP 118/59
[2024-11-16 11:48] LABS: % Eosinophils 2.2 % (0-6); % Lymphocytes 18.9 % (20.5-51.1); % Monocytes 4.4 % (1.7-9.3); % Neutrophils 72.5 % (42.2-75.2); Absolute Basophils 0.1 10^3/uL (0-0.2); Absolute Eosinophils 0.1 10^3/uL (0-0.7); Absolute Immature Granulocytes 0.1 10^3/uL (0-0.05); Absolute Lymphocytes 1.1 10^3/uL (1.2-3.4); Absolute Monocytes 0.3 10^3/uL (0.1-0.6); Absolute Neutrophils 4.3 10^3/uL (1.4-6.5); Hematocrit 43.9 % (39.0-52.0); Hemoglobin 14.1 g/dL (13.0-18.0); Mean Corp Hgb Conc. 32.1 g/dL (33.0-37.0); Mean Corpuscular Volume 90.1 fL (80.0-94.0); Mean Platelet Volume 9.5 fL (7.4-10.4); Nucleated Red Blood Cells % 0 % (-); Platelet Count 275 10^3/uL (130-400); Red Blood Cell Count 4.87 10^6/uL (4.70-6.10); Red Cell Dist. Width 15.6 % (11.5-14.5); White Blood Cell Count 5.9 10^3/uL (4.8-10.8)
[2024-11-16 12:02] VITALS: BP 104/59
[2024-11-16 12:09] LABS: ALT (SGPT) 15 U/L (0-50); AST (SGOT) 30 U/L (17-59); Albumin 4.2 g/dl (3.5-5.0); Alkaline Phosphatase 98 U/L (38-126); Blood Urea Nitrogen 14 mg/dl (9-20); Calcium 9.4 mg/dl (8.4-10.2); Carbon Dioxide 32 mmol/L (22-30); Chloride 102 mmol/L (98-107); Glucose 114 mg/dl (70-99); Potassium 4.7 mmol/L (3.5-5.1); Sodium 143 mmol/L (135-145); Total Protein 8.6 g/dl (6.3-8.2); eGFR > 60.00
[2024-11-16] MEDS: NSS 1000 IV (12:42)
[2024-11-16 13:57] VITALS: BP 86/53
[2024-11-16 14:00] VITALS: BP 83/55
[2024-11-16 15:00] VITALS: BP 93/61
== END 2024-11-16 15:47 | disposition home or self-care (01) ==
LOC: EMR 10:55
PROVIDERS: EMERGENCY PHYSICIAN Emergency Medicine; FAMILY PHYSICIAN Student in an Organized Health Care Education/Training Program
DX: G40.909 Epilepsy, unspecified, not intractable, without status epilepticus (principal); W19.XXXA Unspecified fall, initial encounter
CPT/HCPCS: 99285; 96360; 70450; 80053; 85025; 93005

== ENCOUNTER → 2024-11-22 10:25 | Outpatient (REF) | payer MEDICARE, OTHER, SELFPAY ==
[2024-11-24 23:21] LABS: Keppra (Levetiracetam) 33 ug/mL (10-40)
== END ==
LOC: OLABN 10:25
PROVIDERS: ATTENDING PHYSICIAN Student in an Organized Health Care Education/Training Program
DX: G40.909 Epilepsy, unspecified, not intractable, without status epilepticus (principal)
CPT/HCPCS: 36415; 80177

== ENCOUNTER → 2024-12-05 10:25 | Outpatient (REF) | payer MEDICARE, OTHER, SELFPAY ==
[2024-12-05 11:40] LABS: TSH 0.82 uIU/ml (0.47-4.68)
== END ==
LOC: OLABN 10:25
PROVIDERS: ATTENDING PHYSICIAN Student in an Organized Health Care Education/Training Program
DX: E03.9 Hypothyroidism, unspecified (principal)
CPT/HCPCS: 36415; 84443

== ENCOUNTER → 2025-03-05 11:33 | Outpatient (REF) | payer MEDICARE, OTHER, SELFPAY | LOC: OLABN 11:33 | PROVIDERS: ATTENDING PHYSICIAN Student in an Organized Health Care Education/Training Program | DX: G40.909 Epilepsy, unspecified, not intractable, without status epilepticus (principal) | CPT/HCPCS: 36415; 80177 ==